=== PATIENT | male | born 1940 | race Caucasian/White ===

== ENCOUNTER 2017-04-06 08:51 | Outpatient (CLI) | payer MEDICARE ==
--- NOTE | 2017-04-06 10:03 | ULT ---
BILATERAL CAROTID DUPLEX ULTRASOUND INCLUDING COLOR AND SPECTRAL DOPPLER IMAGING: Date: 04/06/17 HISTORY: [id number] male with follow-up stenoses. FINDINGS/IMPRESSION: PSV Right ICA: 318 cm/sec EDV: 55 cm/sec ICA/CCA Ratio: 3.4 PSV Left ICA: 66 cm/sec EDV: 19 cm/sec ICA/CCA Ratio: 0.8 Markedly abnormally high velocities in both ECAs. Severe greater than 70% stenosis right ICA. No hemodynamically significant stenosis demonstrated on t he left side. Postop changes involving the left carotid artery with what appears to be a persistent e ndostent in place. POS: [facility]
== END 2017-04-06 08:52 | disposition home or self-care (01) ==
LOC: ULT 08:51
PROVIDERS: ATTEND Thoracic Surgery (Cardiothoracic Vascular Surgery)
DX: I65.8 Occlusion and stenosis of other precerebral arteries (principal); I65.21 Occlusion and stenosis of right carotid artery
CPT/HCPCS: 93880

== ENCOUNTER 2017-05-23 08:30 | Inpatient (IN) | payer MEDICARE ==
--- NOTE | 2017-05-23 08:34 | HP ---
HISTORY OF PRESENT ILLNESS: This is a 77-year-old gentleman who about 1 year ago had an episode of b lurred vision and lightheadedness while riding in his car. This eventually led to carotid ultrasonog bhavana and findings of bilateral carotid disease. The left carotid stenosis was deemed to be the wors t and he underwent surgical endarterectomy in August of last year on the left carotid. He had been fol lowed up six months later with a repeat carotid ultrasound showing a good result from the left caroti d endarterectomy, but last of these were greater than 300 cm per second on the right consistent with findings of CTA demonstrating about 70% right carotid stenosis. He is now being admitted for this. PAST MEDICAL HISTORY: Significant for back and knee arthritis. He has a history of elevated lipid l evels. He has had a history of previous deep vein thrombosis with pulmonary embolism. SOCIAL HISTORY: He has not smoked in greater than 10 years. He does not exercise regularly. 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 ALLERGIES: Include LATEX, XARELTO, and ELIQUIS. CURRENT MEDICATIONS: Include Elavil 25 once a day, aspirin 81 once a day, atorvastatin 20 mg once a day, calcium carbonate 600 mg daily, iron supplements 325 mg b.i.d., Lasix 20 mg a day, Hytrin 10 mg once a day, tramadol as needed for pain, testosterone topical gel, and multivitamins. PAST SURGICAL HISTORY: Laminectomy on [address] Reyes, bilateral knee replacements last year by Dr. Gabriel, prior DVT and pulmonary embolism, right shoulder surgery, left carotid endartere ctomy, and reversed right shoulder surgery in 12/2016. PHYSICAL EXAMINATION: GENERAL: He is an alert, cooperative gentleman in no distress. Weight 220. Height 5 feet 11 inches . VITAL SIGNS: Blood pressure 140/80, heart rate 86. NECK: Right carotid bruit is present. He does have somewhat limited mobility of his neck motion. CARDIAC: Regular rate and rhythm, no murmurs. LUNGS: Clear to auscultation bilaterally. He has no clubbing, cyanosis or edema distally. ABDOMEN: Soft and obese, nontender. NEUROLOGIC: Nonfocal. PLAN: At this time is for right carotid endarterectomy and informed consent has been obtained.
[2017-05-24] MEDS ORDERED: CEFAZOLIN/Water 2 GM/20 ML SYRINGE ONE (06:21)
[2017-05-24] MEDS ORDERED: Fentanyl 100 MCG/2 ML VIAL ONE ×2 (06:38→09:57)
[2017-05-24] MEDS ORDERED: Protamine Sulfate 50 MG/5 ML VIAL ONE (06:39)
[2017-05-24] MEDS ORDERED: Heparin 5,000 UNITS/ML VIAL ONE (06:39)
[2017-05-24] MEDS ORDERED: Bupivacaine HCl 0.5%/Epinephrine 1:200,000/PF 30 ml Vial ONE (06:40)
--- NOTE | 2017-05-24 09:56 | OP ---
PREOPERATIVE DIAGNOSIS: Critical right carotid stenosis. POSTOPERATIVE DIAGNOSIS: Critical right carotid stenosis. PROCEDURE: Right carotid endarterectomy with bovine patch angioplasty. SURGEON: Abdulaziz Ramos M.D. ANESTHESIA: General. ESTIMATED BLOOD LOSS: Less than 100. PROCEDURE IN DETAIL: After adequate anesthesia had been obtained, the patient's neck was stiff and d id not rotate, which was a known problem prior to surgery. He had an ultrasound utilization to ident dwight the carotid bulb. He was then prepped and draped. Incision was made and carried through the michael tysma. Sternocleidomastoid muscle was rotated laterally. Facial and external jugular veins were lig ated and divided. Common internal and external carotid arteries were identified as well as the hypog lossal nerve. After heparinization and good ACT levels, clamps were applied, arteriotomy performed, and a 12-Japanese shunt placed, which fit snugly. Following this, endarterectomy was performed. There was nice tapering distally. After irrigating the area thoroughly with heparin saline and a bovine p atch was used to close the arteriotomy. Prior to completing the suture line, the shunt was removed, vessels back flushed and forward flushed. The suture line was secured and flow restored up the exter nal and then internal carotid artery. Following a partial heparin reversal with protamine, hemostasi s was obtained and the wound was irrigated and closed in layers.
[2017-05-24 11:16] VITALS: BMI 31.3
[2017-05-24] MEDS ORDERED: Sodium Chloride 0.9% 1,000 ML IV SCH (11:25)
[2017-05-24] MEDS ORDERED: hydrALAZINE 20 MG/ML VIAL SLOW IVP PRN (11:25)
[2017-05-24] MEDS ORDERED: DOPamine 400 MG/D5W 250 ML 250 ML IVPB PRN (11:25)
[2017-05-24] MEDS ORDERED: Fentanyl 100 MCG/2 ML VIAL SLOW IVP PRN ×2 (11:25)
[2017-05-24] MEDS ORDERED: Ondansetron HCl/PF 4 MG/2 ML Vial IVP PRN (11:25)
[2017-05-24] MEDS ORDERED: Phenylephrine 10 MG/NS 250 ML 250 ML IVPB PRN (11:25)
[2017-05-24] MEDS ORDERED: HYDROcodone/Acetaminophen 5/325 mg Tablet PO PRN ×2 (11:25)
[2017-05-24] MEDS ORDERED: Acetaminophen 325 MG TAB PO PRN (11:25)
[2017-05-24] MEDS ORDERED: traMADol HCl 50 MG TAB PO PRN (11:25)
[2017-05-24] MEDS ORDERED: Glycopyrrolate 0.2 MG/ML 5 ML SYRINGE ONE (15:41)
[2017-05-24] MEDS ORDERED: PHENYLEPHRINE-NS 100 MCG/ML 10 ML SYRINGE ONE (15:41)
[2017-05-24] MEDS ORDERED: Metoprolol Tartrate 5 MG/5 ML VIAL ONE (15:41)
[2017-05-24] MEDS ORDERED: Heparin 10,000 UNITS/ 10 ML VIAL ONE (15:41)
[2017-05-24] MEDS ORDERED: Ondansetron HCl/PF 4 MG/2 ML Vial ONE (15:41)
[2017-05-24] MEDS ORDERED: Dexamethasone 20 MG/5 ML VIAL ONE (15:41)
[2017-05-24] MEDS ORDERED: Propofol 200 MG/20 ML VIAL ONE (15:41)
[2017-05-24] MEDS ORDERED: Lidocaine 1% PF 5 ML VIAL ONE (15:41)
[2017-05-24] MEDS: CEFAZOLIN/Water 2 GM/20 ML SYRINGE SLOW IVP SCH ×2 (15:50→23:38)
[2017-05-24] MEDS ORDERED: Amitriptyline HCl 25 MG TAB PO SCH (21:00)
[2017-05-24] MEDS ORDERED: Atorvastatin Calcium 20 MG TAB PO SCH (21:00)
[2017-05-24] MEDS ORDERED: Terazosin HCl 5 MG CAP PO SCH (21:00)
[2017-05-25 04:24] VITALS: TEMP 98.6
[2017-05-25] MEDS: CEFAZOLIN/Water 2 GM/20 ML SYRINGE SLOW IVP SCH (06:13)
--- NOTE | 2017-05-25 06:48 | DIS ---
HOSPITAL COURSE: The patient was admitted for elective right carotid endarterectomy. His postoperat lida course was uneventful. His neurologic exam was baseline and he had only some mild perioperative bradycardia into the mid 40s. He will be discharged today to resume his home medications including a daily aspirin.
[2017-05-25] MEDS ORDERED: Furosemide 20 MG TAB PO SCH (09:00)
[2017-05-25] MEDS ORDERED: Polyethylene Glycol 3350 17 GM Packet PO SCH (21:00)
== END 2017-05-25 09:33 | disposition home or self-care (01) | DRG 39 ==
LOC: SURG A 05-24 05:39 → EDSTATUS 05-24 08:30 → CCU 05-24 09:04
PROVIDERS: ADMIT Thoracic Surgery (Cardiothoracic Vascular Surgery); ATTEND Thoracic Surgery (Cardiothoracic Vascular Surgery)
PROC: 03CH0ZZ Extirpation of Matter from Right Common Carotid Artery, Open Approach (ICD-10-PCS; principal; 2017-05-24)
PROC: 03UH0KZ Supplement Right Common Carotid Artery with Nonautologous Tissue Substitute, Open Approach (ICD-10-PCS; 2017-05-24)
DX: I65.21 Occlusion and stenosis of right carotid artery (principal); R00.1 Bradycardia, unspecified; M17.10 Unilateral primary osteoarthritis, unspecified knee; Z86.718 Personal history of other venous thrombosis and embolism; Z86.711 Personal history of pulmonary embolism; Z87.891 Personal history of nicotine dependence; Z88.8 Allergy status to other drugs, medicaments and biological substances; Z91.040 Latex allergy status; Z79.82 Long term (current) use of aspirin; Z96.653 Presence of artificial knee joint, bilateral; M54.5 Low back pain
CPT/HCPCS: 80048; 85027; 93005; 93010; J0360; J0670; J1100; J1642; J1644; J2001; J2405; J2704; J2720; J3010

== ENCOUNTER 2017-05-23 08:33 | Outpatient (CLI) | payer MEDICARE ==
[2017-05-23 10:12] LABS: Hemoglobin 13.7 g/dL (14.0-18.0); Mean Corpuscular HGB CONC 32.7 g/dL (32.0-36.0); Mean Corpuscular Hemoglobin 31.3 pg (27.0-31.0); Mean Corpuscular Volume 95.9 fl (80.0-94.0); Mean Platelet Volume 6.7 fL (7.4-10.4); Platelet Count 209 thou/uL (130-400); RBC Distribution Width 13.3 % (11.5-14.5); Red Blood Cell (RBC) Count 4.38 mill/uL (4.70-6.10); White Blood Cell (WBC) Count 7.9 thou/uL (4.8-10.8)
[2017-05-23 10:37] LABS: Anion Gap 9 mmol/L (10-20); BUN (Urea Nitrogen) 20 mg/dL (8.4-25.7); Calc. Creatinine Clearance 0 mL/min (70-130); Calcium 8.9 mg/dL (7.8-10.44); Carbon Dioxide 30 mmol/L (23-31); Chloride 102 mmol/L (98-107); Estimated GFR-MDRD 73; Glucose 130 mg/dL (83-110); Potassium 4.2 mmol/L (3.5-5.1); Sodium 137 mmol/L (136-145)
--- NOTE | 2017-05-23 17:09 | EKG ---
Test Reason : Blood Pressure : / mmHG Vent. Rate : 073 BPM Atrial Rate : 073 BPM P-R Int : 170 ms QRS Dur : 088 ms QT Int : 372 ms P-R-T Axes : 051 031 010 degrees QTc Int : 409 ms Normal sinus rhythm Possible Inferior infarct , age undetermined Abnormal ECG When compared with ECG of 09-SEP-2016 09:49, Borderline criteria for Inferior infarct are now Present Inverted T waves have replaced nonspecific T wave abnormality in Inferior leads Confirmed by DR. Tenisha WINSLOW ([id number]) on 05/23/2017 5:08:37 PM Referred By: LATOYA Confirmed By:DR. Tenisha WINSLOW
== END 2017-05-23 08:34 | disposition home or self-care (01) ==
LOC: LABBT 08:33
PROVIDERS: ATTEND Thoracic Surgery (Cardiothoracic Vascular Surgery)
DX: Z01.818 Encounter for other preprocedural examination (principal); I65.21 Occlusion and stenosis of right carotid artery
CPT/HCPCS: 80048; 85027; 93005; 93010

== ENCOUNTER 2017-06-30 08:09 | Outpatient (CLI) | payer MEDICARE ==
--- NOTE | 2017-06-30 10:26 | ULT ---
ULTRASOUND ABDOMINAL AORTA: Date: 06/30/17 HISTORY: Screening for abdominal aortic aneurysm. Patient is a smoker. FINDINGS: The abdominal aorta measures 2.0 cm in the maximum AP dimension. IMPRESSION: No evidence of abdominal aortic aneurysm. POS: [facility]
== END 2017-06-30 08:10 | disposition home or self-care (01) ==
LOC: ULT 08:09
PROVIDERS: ATTEND Internal Medicine
DX: Z87.891 Personal history of nicotine dependence (principal)
CPT/HCPCS: 76775

== ENCOUNTER 2017-09-05 14:13 | Outpatient (CLI) | payer MEDICARE | END 2017-09-05 14:14 | disposition home or self-care (01) | LOC: BICMRI 14:13 | PROVIDERS: ATTEND Specialist | DX: M96.1 Postlaminectomy syndrome, not elsewhere classified (principal); M47.896 Other spondylosis, lumbar region; Z98.890 Other specified postprocedural states | CPT/HCPCS: 72100; 72148 ==

== ENCOUNTER 2019-01-17 06:11 | Day surgery (SDC) | payer MEDICARE ==
[2019-01-16 12:44] VITALS: BMI 27.1
[2019-01-17] MEDS ORDERED: Lidocaine 1% (PF) 30 ML VIAL ONE (06:30)
[2019-01-17 06:58] LABS: ALT (SGPT) 9 U/L (8-55); AST (SGOT) 19 U/L (5-34); Alkaline Phosphatase 90 U/L (40-110); Anion Gap 11 mmol/L (10-20); BUN (Urea Nitrogen) 4 mg/dL (8.4-25.7); Bilirubin, Total 0.5 mg/dL (0.2-1.2); Calc. Creatinine Clearance 65 mL/min (70-130); Calcium 9.2 mg/dL (7.8-10.44); Carbon Dioxide 26 mmol/L (23-31); Chloride 104 mmol/L (98-107); Estimated GFR-MDRD 60; Globulin 3.2 g/dL (2.4-3.5); Glucose 119 mg/dL (83-110); Potassium 4.3 mmol/L (3.5-5.1); Protein, Total 7.2 g/dL (5.8-8.1); Sodium 137 mmol/L (136-145)
[2019-01-17] MEDS ORDERED: hydrALAZINE 20 MG/ML VIAL ONE (07:37)
[2019-01-17] MEDS ORDERED: Nitroglycerin 4.9 GM Bottle ONE (08:09)
[2019-01-17] MEDS ORDERED: diphenhydrAMINE 50 MG/ML VIAL ONE (09:18)
== END 2019-01-17 13:40 | disposition home or self-care (01) ==
LOC: CCL 06:11
PROVIDERS: ATTEND Internal Medicine Cardiovascular Disease
PROC: 4A023N7 Measurement of Cardiac Sampling and Pressure, Left Heart, Percutaneous Approach (ICD-10-PCS; principal; 2019-01-17)
PROC: B2111ZZ Fluoroscopy of Multiple Coronary Arteries using Low Osmolar Contrast (ICD-10-PCS; 2019-01-17)
DX: I25.10 Atherosclerotic heart disease of native coronary artery without angina pectoris (principal); I35.0 Nonrheumatic aortic (valve) stenosis; E78.2 Mixed hyperlipidemia; I10 Essential (primary) hypertension; E11.9 Type 2 diabetes mellitus without complications; M81.0 Age-related osteoporosis without current pathological fracture; K21.9 Gastro-esophageal reflux disease without esophagitis; J45.909 Unspecified asthma, uncomplicated; Z87.891 Personal history of nicotine dependence; Z79.82 Long term (current) use of aspirin; Z79.84 Long term (current) use of oral hypoglycemic drugs; Z79.899 Other long term (current) drug therapy; Z88.8 Allergy status to other drugs, medicaments and biological substances; Z91.040 Latex allergy status
CPT/HCPCS: 80053; C1769; J0360; J1200; J1644; J2001

== ENCOUNTER 2019-01-24 10:11 | Outpatient (CLI) | payer MEDICARE ==
--- NOTE | 2019-01-24 17:08 | EKG ---
Test Reason : Blood Pressure : / mmHG Vent. Rate : 109 BPM Atrial Rate : 109 BPM P-R Int : 156 ms QRS Dur : 084 ms QT Int : 330 ms P-R-T Axes : 000 067 031 degrees QTc Int : 444 ms Sinus tachycardia Otherwise normal ECG Confirmed by DUY SMITH ([id number]) on 01/24/2019 5:08:13 PM Referred By: IRAJ Confirmed By:DUY SMITH
== END 2019-01-24 10:12 | disposition home or self-care (01) ==
LOC: LABBT 10:11
PROVIDERS: ATTEND Thoracic Surgery (Cardiothoracic Vascular Surgery)
DX: Z01.810 Encounter for preprocedural cardiovascular examination (principal); I25.10 Atherosclerotic heart disease of native coronary artery without angina pectoris; I35.1 Nonrheumatic aortic (valve) insufficiency
CPT/HCPCS: 93005; 93010

== ENCOUNTER 2019-01-24 12:00 | Inpatient (IN) | payer MEDICARE ==
[2019-01-24 12:36] VITALS: BMI 27.0
[2019-01-24 14:24] LABS: Hemoglobin 12.6 g/dL (14.0-18.0); Mean Corpuscular HGB CONC 34.5 g/dL (32.0-36.0); Mean Corpuscular Hemoglobin 32.9 pg (27.0-31.0); Mean Corpuscular Volume 95.4 fL (78.0-98.0); Mean Platelet Volume 7.5 fL (7.4-10.4); Platelet Count 218 thou/uL (130-400); RBC Distribution Width 11.5 % (11.5-14.5); Red Blood Cell (RBC) Count 3.83 mill/uL (4.70-6.10); White Blood Cell (WBC) Count 8.1 thou/uL (4.8-10.8)
[2019-01-24 14:41] LABS: Anion Gap 11 mmol/L (10-20); BUN (Urea Nitrogen) 21 mg/dL (8.4-25.7); Calc. Creatinine Clearance 0 mL/min (70-130); Calcium 9.4 mg/dL (7.8-10.44); Carbon Dioxide 28 mmol/L (23-31); Chloride 104 mmol/L (98-107); Estimated GFR-MDRD 66; Glucose 92 mg/dL (83-110); Potassium 3.9 mmol/L (3.5-5.1); Sodium 139 mmol/L (136-145)
[2019-01-25] MEDS ORDERED: Albumin 5% 500 ML ONE ×2 (06:07→06:37)
[2019-01-25] MEDS ORDERED: Vancomycin HCl 1.5 GM in Sodium Chloride 0.9% 250 ML 300 ML IVPB SCH (06:30)
[2019-01-25] MEDS ORDERED: Fentanyl 100 MCG/2 ML VIAL ONE (06:31)
[2019-01-25] MEDS ORDERED: Midazolam HCl 2 mg/2 ml Vial ONE (06:31)
[2019-01-25] MEDS ORDERED: Vecuronium 10 MG VIAL ONE ×2 (06:32→11:19)
[2019-01-25] MEDS ORDERED: Dexmedetomidine 200 MCG/2 ML VIAL ONE (06:32)
[2019-01-25] MEDS ORDERED: Midazolam HCl 5 mg/5 ml Vial ONE (06:32)
[2019-01-25] MEDS ORDERED: Heparin 10,000 UNITS/1 ML VIAL 30,000 UNITS in Sodium Chloride 0.9% 1,000 ML FS SCH (07:15)
[2019-01-25] MEDS ORDERED: Insulin Regular 300 UNITS/3 ML VIAL ONE (09:40)
[2019-01-25] MEDS ORDERED: Sodium Bicarb 50 MEQ/50 ML VIAL ONE (11:19)
[2019-01-25] MEDS ORDERED: Mannitol 12.5 GM/50 ML ONE (11:19)
[2019-01-25] MEDS ORDERED: Atropine Sulfate 0.4 mg/1 ml Vial ONE (11:19)
[2019-01-25] MEDS ORDERED: Nitroglycerin 50 MG/250 ML BOT ONE (11:19)
[2019-01-25] MEDS ORDERED: Cardioplegic Soln 1,000 ML BAG ONE (11:19)
[2019-01-25] MEDS ORDERED: Aminocaproic Acid 5 GM/20 ML VIAL ONE (11:19)
[2019-01-25] MEDS ORDERED: Ketorolac Tromethamine 30 MG/ML VIAL ONE (11:19)
[2019-01-25] MEDS ORDERED: Papaverine 60 MG/2 ML VIAL ONE (11:19)
[2019-01-25] MEDS ORDERED: Glycopyrrolate 0.2 MG/ML 5 ML SYRINGE ONE (11:19)
[2019-01-25] MEDS ORDERED: Protamine Sulfate 250 MG/25 ML VIAL ONE (11:19)
[2019-01-25] MEDS ORDERED: Lidocaine 2% PF 5 ML VIAL ONE (11:19)
[2019-01-25] MEDS ORDERED: Esmolol 100 MG/10 ML VIAL ONE (11:19)
[2019-01-25] MEDS ORDERED: Heparin 5,000 UNITS/ML VIAL ONE (11:19)
[2019-01-25] MEDS ORDERED: ePHEDrine/0.9% NaCl/PF SYRINGE 50 mg/10 ml ONE (11:19)
[2019-01-25] MEDS ORDERED: Potassium Chloride 60 MEQ/30 ML VIAL ONE (11:19)
[2019-01-25] MEDS ORDERED: Ondansetron PF 4 MG/2 ML Vial ONE (11:19)
[2019-01-25] MEDS ORDERED: Magnesium 5 GM/10 ML VIAL ONE (11:19)
[2019-01-25] MEDS ORDERED: Heparin 30,000 units/30 ml VIAL ONE (11:19)
[2019-01-25] MEDS ORDERED: PHENYLEPHRINE-NS 100 MCG/ML 10 ML SYRINGE ONE (11:19)
[2019-01-25] MEDS ORDERED: Norepinephrine 4 MG/4 ML VIAL ONE (11:19)
[2019-01-25] MEDS ORDERED: Thrombin 5000 UNITS/5 ML VIAL ONE (11:19)
[2019-01-25] MEDS ORDERED: Calcium Chloride 1 GM/10 ML Abboject SYRINGE ONE (11:19)
[2019-01-25] MEDS ORDERED: Mag-Al 1200 mg/1200 mg/30 ML UDCUP PO PRN (12:20)
[2019-01-25] MEDS ORDERED: Nitroglycerin 50 MG/250 ML BOT 250 ML IVPB PRN (12:20)
[2019-01-25] MEDS ORDERED: Hetastarch 6% 500 ML 500 ML IVPB PRN (12:20)
[2019-01-25] MEDS ORDERED: Fentanyl 100 MCG/2 ML VIAL SLOW IVP PRN (12:20)
[2019-01-25] MEDS ORDERED: Post-Op Insulin Drip Protocol IVPB ONE (12:20)
[2019-01-25] MEDS ORDERED: DOPamine 400 MG/D5W 250 ML 250 ML IVPB PRN (12:20)
[2019-01-25] MEDS ORDERED: Norepinephrine 8 MG/0.9% NS 250 ML IVPB PRN (12:20)
[2019-01-25] MEDS ORDERED: Bisacodyl 5 MG TAB PO PRN (12:20)
[2019-01-25] MEDS ORDERED: Acetaminophen 325 MG TAB PO PRN (12:20)
[2019-01-25] MEDS ORDERED: Morphine 2 MG/ML SYRINGE SLOW IVP PRN (12:20)
[2019-01-25] MEDS ORDERED: HYDROcodone/Acetaminophen 5/325 mg Tablet PO PRN (12:20)
[2019-01-25] MEDS ORDERED: Guaifenesin DM 100-10/5 ML UDCUP PO PRN (12:20)
[2019-01-25] MEDS ORDERED: Bisacodyl 10 MG SUPP PR PRN (12:20)
[2019-01-25] MEDS ORDERED: niCARdipine 25 MG in Sodium Chloride 0.9% 250 ML 240 ML IVPB PRN (12:20)
[2019-01-25] MEDS ORDERED: Ondansetron PF 4 MG/2 ML Vial IVP PRN (12:20)
[2019-01-25] MEDS ORDERED: hydrALAZINE 20 MG/ML VIAL SLOW IVP PRN (12:20)
[2019-01-25] MEDS ORDERED: Promethazine HCl 25 MG/ML VIAL IM PRN (12:20)
[2019-01-25] MEDS ORDERED: HUMULIN R 100 UNITS in Sodium Chloride 0.9% 100 ML IVPB SCH (12:30)
[2019-01-25] MEDS ORDERED: Insulin Regular 300 UNITS/3 ML VIAL SC PRN (12:30)
[2019-01-25] MEDS ORDERED: Magnesium 2 GM/50 ML 2 GM in Premix Bag 1 BAG IVPB SCH (12:30)
[2019-01-25] MEDS ORDERED: Dextrose 5% in Water 1,000 ML IV PRN (12:30)
[2019-01-25] MEDS ORDERED: Dextrose 50% Abboject 50 ML SYRINGE SLOW IVP PRN (12:30)
[2019-01-25 12:57] LABS: #Eosinphils 0.1 thou/uL (0.0-0.7); #Lymphocytes 0.9 thou/uL (1.20-3.40); #Monocytes 0.9 thou/uL (0.11-0.59); #Neutrophils 12.9 thou/uL (1.40-6.50); %Basophils 0.1 % (0.0-1.0); %Eosinophils 0.4 % (0.0-10.0); %Lymphocytes 6.3 % (21.0-51.0); %Monocytes 6.2 % (0.0-10.0); Hemoglobin 10.3 g/dL (14.0-18.0); Mean Corpuscular HGB CONC 34.9 g/dL (32.0-36.0); Mean Corpuscular Hemoglobin 33.2 pg (27.0-31.0); Platelet Count 141 thou/uL (130-400); RBC Distribution Width 11.4 % (11.5-14.5); White Blood Cell (WBC) Count 14.9 thou/uL (4.8-10.8)
[2019-01-25 13:02] LABS: INR-International Normal Ratio 1.7; PTT 34.6 SEC (22.9-36.1)
[2019-01-25] MEDS: Fentanyl 100 MCG/2 ML VIAL SLOW IVP PRN ×2 (13:13→15:24)
[2019-01-25 13:33] LABS: Anion Gap 11 mmol/L (10-20); BUN (Urea Nitrogen) 18 mg/dL (8.4-25.7); Calc. Creatinine Clearance 77 mL/min (70-130); Calcium 7.8 mg/dL (7.8-10.44); Carbon Dioxide 25 mmol/L (23-31); Chloride 108 mmol/L (98-107); Estimated GFR-MDRD 70; Glucose 106 mg/dL (83-110); Sodium 140 mmol/L (136-145)
--- NOTE | 2019-01-25 14:02 | RAD ---
CHEST ONE VIEW: HISTORY: Heart surgery. COMPARISON: 06/23/2016 FINDINGS: The cardiac silhouette is magnified and enlarged. The pulmonary vasculature are at the upper limits o f normal and accentuated by shallow inspiration. The mediastinum is midline with sternotomy wires and other postoperative changes. Left thoracostomy tube extends to the superolateral aspect of the left hemithorax. No significant pneumothorax on this portable semiupright exam. Mediastinal drain in place . The tip of a right subclavian central venous catheter overlies the right atrium. IMPRESSION: Expected postoperative changes of the mediastinum with lines and tubes as detailed above. POS: [facility]
[2019-01-25] MEDS: Ibuprofen 800 MG TAB PO SCH ×2 (15:24→21:08)
[2019-01-25] MEDS: CEFAZOLIN 2 GM in Premix Bag 1 BAG IVPB SCH ×2 (15:24→22:09)
[2019-01-25 15:26] LABS: Actual Bicarbonate (HCO3a) 26.5 mEq/L (22-28); Analyzer IN Cardio OR; Base Excess (BEa) 0.6 mEq/L (-2.0 to +3.0); CO2 Tension 47.6 mmHg (35.0-45.0); Calcium, Ionized 1.11 mmol/L (1.12-1.30); Carboxyhemoglobin (COHb) 0.2 gm% (0.0-3.0); Hemoglobin (Hb) 11.7 g/dL (14.0-18.0); O2 Tension (PaO2) 456.5 mmHg (> 70.0); Potassium - ABG Lab 4.15 mmol/L (3.70-5.30); pH, Arterial 7.36 (7.35-7.45)
[2019-01-25 15:26] LABS: Actual Bicarbonate (HCO3a) 26.5 mEq/L (22-28); Analyzer IN Cardio OR; Base Excess (BEa) 1.5 mEq/L (-2.0 to +3.0); Calcium, Ionized 1.12 mmol/L (1.12-1.30); Carboxyhemoglobin (COHb) 0.7 gm% (0.0-3.0); O2 Tension (PaO2) 461.4 mmHg (> 70.0); Potassium - ABG Lab 4.05 mmol/L (3.70-5.30); pH, Arterial 7.41 (7.35-7.45)
[2019-01-25 15:27] LABS: Actual Bicarbonate (HCO3a) 23.9 mEq/L (22-28); Analyzer IN Cardio OR; Base Excess (BEa) -2.3 mEq/L (-2.0 to +3.0); CO2 Tension 47.8 mmHg (35.0-45.0); Calcium, Ionized 1.07 mmol/L (1.12-1.30); Carboxyhemoglobin (COHb) 0.3 gm% (0.0-3.0); Hemoglobin (Hb) 9.7 g/dL (14.0-18.0); O2 Tension (PaO2) 343.2 mmHg (> 70.0); Potassium - ABG Lab 4.81 mmol/L (3.70-5.30); pH, Arterial 7.32 (7.35-7.45)
[2019-01-25 15:27] LABS: Actual Bicarbonate (HCO3a) 25.8 mEq/L (22-28); Analyzer IN Cardio OR; Base Excess (BEa) -0.4 mEq/L (-2.0 to +3.0); Calcium, Ionized 1.03 mmol/L (1.12-1.30); Carboxyhemoglobin (COHb) 0.1 gm% (0.0-3.0); Hemoglobin (Hb) 9.3 g/dL (14.0-18.0); O2 Tension (PaO2) 431.2 mmHg (> 70.0); Potassium - ABG Lab 5.13 mmol/L (3.70-5.30); pH, Arterial 7.33 (7.35-7.45)
[2019-01-25 15:27] LABS: Actual Bicarbonate (HCO3v) 25 mEq/L (22-28); Analyzer IN Cardio OR; Base Excess -1.1 mEq/L (-2.0 to +3.0); Chloride (ABG LAB) 100 mmol/L (98-106); Hemoglobin (Hb) 9.1 g/dL (12.6-17.4); Potassium - ABG Lab 5.03 mmol/L (3.70-5.30); Sodium 129.2 mmol/L (133-146); pH (venous) 7.31 (7.32-7.43)
[2019-01-25] MEDS: Potassium Chloride 20 MEQ/100 ML PREMIX BAG IVPB PRN (15:27)
[2019-01-25 15:28] LABS: Actual Bicarbonate (HCO3a) 22.7 mEq/L (22-28); Analyzer IN Cardio OR; Base Excess (BEa) -2.1 mEq/L (-2.0 to +3.0); CO2 Tension 38.8 mmHg (35.0-45.0); Calcium, Ionized 1.13 mmol/L (1.12-1.30); Carboxyhemoglobin (COHb) 0.3 gm% (0.0-3.0); Hemoglobin (Hb) 10.4 g/dL (14.0-18.0); Potassium - ABG Lab 3.85 mmol/L (3.70-5.30); pH, Arterial 7.39 (7.35-7.45)
[2019-01-25 15:28] LABS: Puncture Site ALINE
[2019-01-25 15:28] LABS: Actual Bicarbonate (HCO3a) 27.6 mEq/L (22-28); Analyzer IN Cardio OR; CO2 Tension 54.6 mmHg (35.0-45.0); Calcium, Ionized 1.06 mmol/L (1.12-1.30); Hemoglobin (Hb) 9.6 g/dL (14.0-18.0); O2 Tension (PaO2) 389.8 mmHg (> 70.0); Potassium - ABG Lab 4.52 mmol/L (3.70-5.30); pH, Arterial 7.32 (7.35-7.45)
[2019-01-25 15:29] LABS: Puncture Site ALINE
[2019-01-25 15:29] LABS: Puncture Site ALINE
[2019-01-25 15:30] LABS: Puncture Site ALINE
[2019-01-25 15:30] LABS: Puncture Site ALINE
[2019-01-25 15:31] LABS: O2 Tension (PaO2) 580.6 mmHg (> 70.0); Puncture Site ALINE
[2019-01-25] MEDS: Lactated Ringer's 1,000 ML IV SCH (15:47)
--- NOTE | 2019-01-25 16:54 | EKG ---
Test Reason : POST CABG Blood Pressure : / mmHG Vent. Rate : 065 BPM Atrial Rate : 065 BPM P-R Int : 184 ms QRS Dur : 088 ms QT Int : 452 ms P-R-T Axes : 065 043 068 degrees QTc Int : 470 ms Normal sinus rhythm Normal ECG Confirmed by DUY SMITH ([id number]) on 01/25/2019 4:53:39 PM Referred By: LATOYA Confirmed By:DUY SMITH
[2019-01-25 18:14] LABS: Hemoglobin 10.3 g/dL (14.0-18.0)
[2019-01-25] MEDS: Vancomycin HCl 1 GM in Premix Bag 1 BAG IVPB SCH (18:30)
[2019-01-25 18:33] LABS: Potassium 4.6 mmol/L (3.5-5.1)
[2019-01-25] MEDS: Simvastatin 20 MG TAB PO SCH (20:15)
[2019-01-25] MEDS: HYDROcodone/Acetaminophen 5/325 mg Tablet PO PRN (20:15)
[2019-01-25] MEDS: Famotidine/PF 20 mg/2ml Vial SLOW IVP SCH (20:15)
[2019-01-26 04:51] LABS: #Lymphocytes 0.8 thou/uL (1.20-3.40); #Monocytes 1.2 thou/uL (0.11-0.59); %Basophils 0.2 % (0.0-1.0); %Eosinophils 0.2 % (0.0-10.0); %Lymphocytes 7.3 % (21.0-51.0); %Monocytes 10.6 % (0.0-10.0); %Neutrophils 81.8 % (42.0-75.0); Hemoglobin 10.1 g/dL (14.0-18.0); Mean Corpuscular HGB CONC 34.7 g/dL (32.0-36.0); Mean Corpuscular Hemoglobin 33.5 pg (27.0-31.0); Mean Corpuscular Volume 96.3 fL (78.0-98.0); Mean Platelet Volume 7.4 fL (7.4-10.4); Platelet Count 147 thou/uL (130-400); RBC Distribution Width 11.6 % (11.5-14.5); Red Blood Cell (RBC) Count 3.01 mill/uL (4.70-6.10)
[2019-01-26] MEDS: Ibuprofen 800 MG TAB PO SCH ×3 (04:51→20:16)
[2019-01-26 05:08] LABS: Anion Gap 8 mmol/L (10-20); BUN (Urea Nitrogen) 19 mg/dL (8.4-25.7); Calc. Creatinine Clearance 76 mL/min (70-130); Calcium 7.8 mg/dL (7.8-10.44); Carbon Dioxide 27 mmol/L (23-31); Chloride 106 mmol/L (98-107); Estimated GFR-MDRD 69; Glucose 124 mg/dL (83-110); Potassium 4.1 mmol/L (3.5-5.1); Sodium 137 mmol/L (136-145)
[2019-01-26] MEDS: Vancomycin HCl 1 GM in Premix Bag 1 BAG IVPB SCH (06:02)
[2019-01-26] MEDS: Lactated Ringer's 1,000 ML IV SCH (06:54)
--- NOTE | 2019-01-26 08:19 | OP ---
DATE OF PROCEDURE: 01/25/2019 PREOPERATIVE DIAGNOSES: 1. Coronary artery disease. 2. Aortic valve stenosis. POSTOPERATIVE DIAGNOSES: 1. Coronary artery disease. 2. Aortic valve stenosis. PROCEDURES PERFORMED: 1. Aortic valve replacement with a #25 INSPIRIS bioprosthetic valve. 2. Coronary artery bypass graft x4; left internal mammary artery as a sequential graft to the diagonal and LAD with the LAD being a very small target and the diagonal being at least 1.5 mm, large saphenous vein to a 1.5 to 2 mm obtuse marginal, and a large saphenous vein to 2 to 3 mm right coronary artery past the acute margin of the heart. CIS COORDINATOR: Dr. Coy. TRANSFUSION: None. DESCRIPTION OF PROCEDURE: After adequate anesthesia had been obtained, endovascular vein harvest of the left greater saphenous vein was performed while I performed a median sternotomy. The left internal mammary artery was harvested, entering the left pleura apically in a small area. After heparinization, the mammary was passed posterior to the thymus gland. Aorta and right atrium were cannulated and cardiopulmonary bypass was begun. The aorta was crossclamped, and after a liter of cold blood cardioplegia, the 4 distal anastomoses were completed. Following this, 300 mL of cardioplegia was given. A right superior pulmonary vein sump was placed and CO2 was insufflated in the pericardium and the aorta was then opened. Aortic trileaflet valve removed and the calcium debrided from the annulus. A 25 valve was chosen, following which 2-0 Ethibond mattress sutures were placed circumferentially, with felt deep to the anulus. The valve was then seated and suture secured. The aorta was closed with a double-layer 5-0 Prolene suture. Following this, the crossclamp was removed, the partial occluding clamp placed, and 2 proximal anastomoses performed on the aortic root and marked with rings. The patient was then weaned from cardiopulmonary bypass. Cannula was removed and the aortic cannulation site secured with a 4-0 Prolene suture. Mediastinal and left pleural drains were placed, following which the sternum was reapproximated with #7 interrupted wire using vancomycin paste on the sternal edges, platelet-rich blood, and platelet-poor plasma. Job ID: [id number]
[2019-01-26] MEDS: Aspirin 325 MG TAB PO SCH (08:26)
[2019-01-26] MEDS: HYDROcodone/Acetaminophen 5/325 mg Tablet PO PRN ×4 (08:26→20:17)
[2019-01-26] MEDS: CEFAZOLIN 2 GM in Premix Bag 1 BAG IVPB SCH (08:27)
[2019-01-26] MEDS: Enoxaparin Sodium 40 MG/0.4 ML SYRINGE SC SCH (08:27)
[2019-01-26] MEDS: Famotidine/PF 20 mg/2ml Vial SLOW IVP SCH ×2 (08:27→20:14)
[2019-01-26] MEDS: Polyethylene Glycol 3350 17 GM Packet PO SCH (08:27)
[2019-01-26] MEDS ORDERED: Dextrose 50% Abboject 50 ML SYRINGE SLOW IVP PRN (08:31)
[2019-01-26] MEDS ORDERED: Dextrose 5% in Water 1,000 ML IV PRN (08:31)
--- NOTE | 2019-01-26 09:04 | RAD ---
XR Chest 1 View Portable History: Open-heart surgery Comparison: Radiograph prior day Findings: Moderate left layering pleural effusion. Small right effusion. Mediastinal drains are similar. No significant pneumothorax. Right subclavian central venous catheter is similar. Similar appearance right reverse total shoulder arthroplasty. Impression: Uncomplicated expected postoperative findings.
--- NOTE | 2019-01-26 15:04 | PRG ---
DATE OF SERVICE: 01/26/2019 SUBJECTIVE: Mr. Veras currently doing well. He recently underwent bypass surgery and aortic valve replacement. No current complaints. He is currently on IV nitroglycerine in his IV fluids. He has a chest tube in place. No pressors noted. Recent chest x-ray showed uncomplicated postoperative findings. OBJECTIVE: VITAL SIGNS: Blood pressure 112/68, pulse 108, temperature afebrile. LUNGS: Clear to auscultation. HEART: Regular rate and rhythm. ABDOMEN: Soft, nontender, nondistended. EXTREMITIES: No edema. PERTINENT LABORATORY DATA: Hemoglobin 10.1, creatinine 1.04. IMPRESSION: 1. Coronary artery disease. 2. Status post bypass surgery. 3. Status post aortic valve replacement. RECOMMENDATIONS: 1. Routine postop care. 2. Chest tube recommendations per Dr. Abdulaziz Ramos. 3. Add statin therapy in addition to aspirin. 4. Add beta-braulio therapy when hemodynamically stable. Job ID: [id number]
[2019-01-26] MEDS: Insulin Regular 300 UNITS/3 ML VIAL SC PRN (16:38)
[2019-01-26] MEDS: Simvastatin 20 MG TAB PO SCH (20:14)
[2019-01-26] MEDS: Terazosin HCl 5 MG CAP PO SCH (20:15)
[2019-01-26] MEDS: Diltiazem HCl 125 MG, Admixture Fee 1 EACH in Sodium Chloride 0.9% 100 ML IVPB SCH (22:27)
[2019-01-27] MEDS: HYDROcodone/Acetaminophen 5/325 mg Tablet PO PRN ×3 (04:40→16:21)
[2019-01-27 04:50] LABS: #Eosinphils 0.1 thou/uL (0.0-0.7); #Monocytes 1.3 thou/uL (0.11-0.59); #Neutrophils 9.5 thou/uL (1.40-6.50); %Basophils 0.1 % (0.0-1.0); %Eosinophils 1.1 % (0.0-10.0); %Lymphocytes 8.7 % (21.0-51.0); %Monocytes 10.8 % (0.0-10.0); %Neutrophils 79.3 % (42.0-75.0); Hemoglobin 9.7 g/dL (14.0-18.0); Mean Corpuscular HGB CONC 34.2 g/dL (32.0-36.0); Mean Corpuscular Hemoglobin 32.9 pg (27.0-31.0); Mean Corpuscular Volume 96.1 fL (78.0-98.0); Mean Platelet Volume 7.6 fL (7.4-10.4); Platelet Count 134 thou/uL (130-400); RBC Distribution Width 11.6 % (11.5-14.5); Red Blood Cell (RBC) Count 2.94 mill/uL (4.70-6.10)
[2019-01-27] MEDS: Ibuprofen 800 MG TAB PO SCH ×3 (05:02→20:13)
[2019-01-27 05:11] LABS: Anion Gap 11 mmol/L (10-20); BUN (Urea Nitrogen) 16 mg/dL (8.4-25.7); Calc. Creatinine Clearance 83 mL/min (70-130); Calcium 8.1 mg/dL (7.8-10.44); Carbon Dioxide 26 mmol/L (23-31); Chloride 104 mmol/L (98-107); Estimated GFR-MDRD 79; Glucose 126 mg/dL (83-110); Potassium 3.9 mmol/L (3.5-5.1); Sodium 137 mmol/L (136-145)
--- NOTE | 2019-01-27 07:44 | RAD ---
XR Chest 1 View Portable History: Open-heart surgery Comparison: Radiograph prior day Findings: Heart size continues to be enlarged. Left effusion is similar. Atelectatic changes are duane lar. Pleural and mediastinal drains are similar. No new airspace consolidation. Impression: Similar examination of the chest.
[2019-01-27] MEDS: Polyethylene Glycol 3350 17 GM Packet PO SCH (08:10)
[2019-01-27] MEDS: Aspirin 325 MG TAB PO SCH (08:10)
[2019-01-27] MEDS: Famotidine/PF 20 mg/2ml Vial SLOW IVP SCH ×2 (08:12→20:12)
[2019-01-27] MEDS: Enoxaparin Sodium 40 MG/0.4 ML SYRINGE SC SCH (08:12)
[2019-01-27] MEDS: Diltiazem HCl 125 MG, Admixture Fee 1 EACH in Sodium Chloride 0.9% 100 ML IVPB SCH (08:44)
[2019-01-27] MEDS: Potassium Chloride 20 MEQ/100 ML PREMIX BAG IVPB PRN (09:47)
[2019-01-27] MEDS ORDERED: Diltiazem HCl 125 MG, Admixture Fee 1 EACH in Sodium Chloride 0.9% 100 ML IVPB SCH (09:49)
[2019-01-27] MEDS ORDERED: Amiodarone 150 MG in Dextrose 5% in Water 100 ML IVPB SCH (11:30)
[2019-01-27] MEDS: Insulin Regular 300 UNITS/3 ML VIAL SC PRN ×2 (11:31→20:24)
[2019-01-27] MEDS: Amiodarone 450 MG in Dextrose 5% in Water 250 ML IVPB SCH ×2 (11:37→20:14)
[2019-01-27] MEDS: Simvastatin 20 MG TAB PO SCH (20:13)
[2019-01-27] MEDS: Terazosin HCl 5 MG CAP PO SCH (20:13)
[2019-01-27] MEDS ORDERED: Metoprolol Tartrate 25 MG TAB PO SCH (21:00)
[2019-01-28] MEDS: HYDROcodone/Acetaminophen 5/325 mg Tablet PO PRN (01:40)
[2019-01-28 05:01] LABS: #Eosinphils 0.2 thou/uL (0.0-0.7); #Lymphocytes 1.1 thou/uL (1.20-3.40); #Monocytes 1.1 thou/uL (0.11-0.59); #Neutrophils 8.8 thou/uL (1.40-6.50); %Basophils 0.1 % (0.0-1.0); %Eosinophils 1.8 % (0.0-10.0); %Monocytes 9.6 % (0.0-10.0); %Neutrophils 78.5 % (42.0-75.0); Hemoglobin 8.8 g/dL (14.0-18.0); Mean Corpuscular HGB CONC 33.9 g/dL (32.0-36.0); Mean Corpuscular Hemoglobin 32.5 pg (27.0-31.0); Mean Corpuscular Volume 95.9 fL (78.0-98.0); Mean Platelet Volume 7.2 fL (7.4-10.4); Platelet Count 140 thou/uL (130-400); RBC Distribution Width 11.5 % (11.5-14.5); Red Blood Cell (RBC) Count 2.71 mill/uL (4.70-6.10); White Blood Cell (WBC) Count 11.3 thou/uL (4.8-10.8)
[2019-01-28] MEDS: Ibuprofen 800 MG TAB PO SCH ×3 (05:04→20:29)
[2019-01-28 05:23] LABS: Anion Gap 10 mmol/L (10-20); BUN (Urea Nitrogen) 20 mg/dL (8.4-25.7); Calc. Creatinine Clearance 78 mL/min (70-130); Calcium 8.1 mg/dL (7.8-10.44); Carbon Dioxide 27 mmol/L (23-31); Chloride 104 mmol/L (98-107); Estimated GFR-MDRD 75; Glucose 136 mg/dL (83-110); Potassium 4.1 mmol/L (3.5-5.1); Sodium 137 mmol/L (136-145)
--- NOTE | 2019-01-28 07:58 | RAD ---
XR Chest 1 View Portable History: Open-heart surgery Comparison: Radiograph prior day Findings: Mild left lower lobe atelectatic changes. No pneumothorax. NaSal drains have been removed. Impression: Uncomplicated removal of mediastinal and pleural drains.
[2019-01-28] MEDS: Amiodarone 200 MG TAB PO SCH ×2 (08:26→20:28)
[2019-01-28] MEDS: Polyethylene Glycol 3350 17 GM Packet PO SCH (08:26)
[2019-01-28] MEDS: metFORMIN 500 MG TAB PO SCH (08:26)
[2019-01-28] MEDS: Enoxaparin Sodium 40 MG/0.4 ML SYRINGE SC SCH (08:26)
[2019-01-28] MEDS ORDERED: Ipratropium Bromide 0.03% Nasal Inhaler 30 ml Bottle EA NARE SCH (09:00)
[2019-01-28] MEDS: Ipratropium Bromide 0.03% Nasal Inhaler 30 ml Bottle EA NARE SCH ×2 (11:33→22:18)
[2019-01-28] MEDS: Simvastatin 20 MG TAB PO SCH (20:28)
[2019-01-28] MEDS: Terazosin HCl 5 MG CAP PO SCH (20:28)
[2019-01-29] MEDS: Ibuprofen 800 MG TAB PO SCH ×3 (06:13→21:26)
[2019-01-29] MEDS: Furosemide 40 MG TAB PO SCH (07:23)
[2019-01-29] MEDS: Potassium Chloride 10 MEQ TAB PO SCH (07:23)
[2019-01-29] MEDS: Amiodarone 200 MG TAB PO SCH ×2 (08:30→19:56)
[2019-01-29] MEDS: Loratadine 10 MG TAB PO SCH (08:30)
[2019-01-29] MEDS: metFORMIN 500 MG TAB PO SCH (08:30)
--- NOTE | 2019-01-29 09:10 | PRG ---
DATE OF SERVICE: 01/29/2019 SUBJECTIVE: Mr. Veras is doing well. He continues to wait for telemetry monitoring bed. He is currently in the ICU. No current complaints. He did have a brief episode of atrial fibrillation over the weekend. He is on p.o. amiodarone. He is not on beta-braulio therapy. OBJECTIVE: VITAL SIGNS: Blood pressure 155/73, pulse 83, and temperature afebrile. LUNGS: Clear to auscultation. HEART: Regular rate and rhythm. ABDOMEN: Soft, nontender, and nondistended. EXTREMITIES: No edema. LABORATORY DATA: Hemoglobin 8.8. Creatinine 0.97. IMPRESSION: 1. Coronary artery disease, status post bypass surgery. 2. Status post aortic valve replacement. 3. Postop atrial fibrillation. RECOMMENDATIONS: Mr. Veras did have a brief episode of atrial fibrillation. We will add low-dose Toprol. It would be okay to continue amiodarone therapy for one month and discontinue. Continue incentive spirometry and physical therapy. Job ID: [id number]
--- NOTE | 2019-01-29 11:24 | EKG ---
Test Reason : Blood Pressure : / mmHG Vent. Rate : 077 BPM Atrial Rate : 077 BPM P-R Int : 172 ms QRS Dur : 084 ms QT Int : 378 ms P-R-T Axes : 027 004 043 degrees QTc Int : 427 ms Normal sinus rhythm Nonspecific ST abnormality Abnormal ECG Confirmed by DUY SMITH ([id number]) on 01/29/2019 11:24:39 AM Referred By: LATOYA Confirmed By:DUY SMITH
--- NOTE | 2019-01-29 11:47 | EKG ---
Test Reason : STAT Blood Pressure : / mmHG Vent. Rate : 092 BPM Atrial Rate : 045 BPM P-R Int : 168 ms QRS Dur : 086 ms QT Int : 330 ms P-R-T Axes : 093 001 038 degrees QTc Int : 408 ms Sinus bradycardia with marked sinus arrhythmia Premature atrial complexes Otherwise normal ECG Confirmed by DUY SMITH ([id number]) on 01/29/2019 11:47:12 AM Referred By: Klaudia KLEIN Confirmed By:DUY SMITH
[2019-01-29] MEDS: Terazosin HCl 5 MG CAP PO SCH (19:56)
[2019-01-29] MEDS: Simvastatin 20 MG TAB PO SCH (19:56)
[2019-01-29] MEDS ORDERED: Polyethylene Glycol 3350 17 GM Packet PO SCH (21:00)
[2019-01-29] MEDS ORDERED: Enoxaparin Sodium 40 MG/0.4 ML SYRINGE SC SCH (21:00)
[2019-01-30 04:29] VITALS: TEMP 99
[2019-01-30] MEDS: Ibuprofen 800 MG TAB PO SCH (06:13)
[2019-01-30] MEDS: Furosemide 40 MG TAB PO SCH (07:51)
[2019-01-30] MEDS: Amiodarone 200 MG TAB PO SCH (07:51)
[2019-01-30] MEDS: metFORMIN 500 MG TAB PO SCH (07:52)
[2019-01-30] MEDS: Potassium Chloride 10 MEQ TAB PO SCH (07:52)
[2019-01-30] MEDS: Loratadine 10 MG TAB PO SCH (07:52)
--- NOTE | 2019-01-30 08:31 | DIS ---
DATE OF ADMISSION: 01/25/2019 DATE OF DISCHARGE: 01/30/2019 A gentleman admitted for a cardiac surgery, where he underwent replacement of his aortic valve with a #25 Inspiris valve and 4-vessel bypass grafting. His postoperative course was notable only for an episode of AFib with RVR that was initially treated with diltiazem and then switched to amiodarone with resolution. He had no recurrence and will be discharged home today to resume his home medications, except for his long-acting nitrates. He will have a prescription for metoprolol XL 25 daily and amiodarone 400 b.i.d. in a tapering dose. Discharge and followup instructions have been given. Job ID: [id number]
[2019-01-30 09:47] VITALS: BP 160/90
[2019-01-30] MEDS ORDERED: Amiodarone 200 MG TAB PO SCH (11:00)
--- NOTE | 2019-01-31 07:20 | PRG ---
DATE OF SERVICE: 01/30/2019 SUBJECTIVE: Mr. Veras is doing well. No current complaints. He remains in the ICU given no telemetry monitoring beds available. OBJECTIVE: VITAL SIGNS: Blood pressure 156/97, pulse 99, and temperature afebrile. LUNGS: Clear to auscultation. HEART: Regular rate and rhythm. ABDOMEN: Soft, nontender, and nondistended. EXTREMITIES: No edema. IMPRESSION: 1. Coronary artery disease. 2. Status post bypass surgery. 3. Status post aortic valve replacement. RECOMMENDATIONS: 1. Continue amiodarone at 400 mg p.o. q.a.m. with zero refills. 2. Continue metoprolol in addition to Zocor and aspirin. 3. I discussed with Mr. Veras the importance of antibiotic therapy prior to any procedure. He understood. Plan is to follow Mr. Veras in the next 2 to 3 weeks in the office. Job ID: [id number]
--- NOTE | 2019-02-01 00:54 | PQF ---
BONNIE FORBES JAMES M MD [id number] CLINICAL DOCUMENTATION CLARIFICATION FORM: POST DISCHARGE Addendum to original discharge summary date: ____ Late entry note date: __ DATE: 02/01/19 ATTN: Abdulaziz Vines Please exercise your independent, professional judgment in responding to the clarification form. Clinical indicators are provided on the bottom of this form for your review Please check appropriate box(s): [ ] Paroxysmal Atrial Fibrillation [ ] Persistent Atrial Fibrillation [ ] Chronic Atrial Fibrillation (includes permanent Atrial Fibrillation) [ ] Atrial fib/Atrial flutter [ ] Atrial Flutter [ y ] Post-Operative Complication - Atrial Fibrillation [ y ] Paroxysmal Atrial Fibrillation [ ] Persistent Atrial Fibrillation [ y ] Other diagnosis __all this information is readily available in the records so why do you ask me [ ] Unable to determine In addition, please specify: Present on Admission (POA): [ ] Yes [ y ] No [ ] Unable to determine For continuity of documentation, please document condition throughout progress notes and discharge summary. Thank You. CLINICAL INDICATORS - SIGNS / SYMPTOMS / LABS 01/29 Dr Rooney He did have brief episode of atrial fibrilation over the weekend 01/29 Vital sign BP 155/73, pulse 83 RISKS FACTORS PN 01/29 - CAD s/p CABG 01/29 - s/p Aortic valve replacement 01/29 - Postop Atrial fibrillation TREATMENTS: JUN 05 Low dose toprol JUN 05 Amiodarone PN 01/29 - Telemetry monitoring PN 01/29 -Incentive spirometry and PT (This form is maintained as a part of the permanent medical record) 2014 [employer]. All Rights Reserved [email or web address] [not provided] [email or web address]
== END 2019-01-30 11:00 | disposition home or self-care (01) | DRG 220 ==
LOC: SURG A 01-25 05:43 → CCU 01-25 11:51
PROVIDERS: ADMIT Thoracic Surgery (Cardiothoracic Vascular Surgery); ATTEND Thoracic Surgery (Cardiothoracic Vascular Surgery)
PROC: 02RF08Z Replacement of Aortic Valve with Zooplastic Tissue, Open Approach (ICD-10-PCS; principal; 2019-01-25)
PROC: 021109W Bypass Coronary Artery, Two Arteries from Aorta with Autologous Venous Tissue, Open Approach (ICD-10-PCS; 2019-01-25)
PROC: 02110Z9 Bypass Coronary Artery, Two Arteries from Left Internal Mammary, Open Approach (ICD-10-PCS; 2019-01-25)
PROC: 06BQ4ZZ Excision of Left Saphenous Vein, Percutaneous Endoscopic Approach (ICD-10-PCS; 2019-01-25)
PROC: 5A1221Z Performance of Cardiac Output, Continuous (ICD-10-PCS; 2019-01-25)
DX: I35.0 Nonrheumatic aortic (valve) stenosis (principal); I97.190 Other postprocedural cardiac functional disturbances following cardiac surgery; I25.10 Atherosclerotic heart disease of native coronary artery without angina pectoris; Z91.040 Latex allergy status; Z88.8 Allergy status to other drugs, medicaments and biological substances; Z85.828 Personal history of other malignant neoplasm of skin; I48.0 Paroxysmal atrial fibrillation
CPT/HCPCS: 36416; 36430; 71045; 80048; 82805; 85025; 85027; 85610; 85730; 86850; 86900; 86901; 93005; 93010; 93798; 94150; J0282; J0461; J0690; J1642; J1644; J1650; J1815; J1885; J2001; J2150; J2250; J2405; J2440; J2720; J3010; J3370; J3475; J3480; J3490; J7070; P9045; S0017; S0028

== ENCOUNTER 2020-07-07 08:34 | Outpatient (CLI) | payer MEDICARE ==
[2020-07-07] MEDS ORDERED: Magnevist 469MG/ML 20 ML VIAL ONE (14:58)
== END 2020-07-07 08:35 | disposition home or self-care (01) ==
LOC: TBSIIMAG 08:34
PROVIDERS: ATTEND Nurse Practitioner Family
DX: M51.16 Intervertebral disc disorders with radiculopathy, lumbar region (principal); M47.26 Other spondylosis with radiculopathy, lumbar region; Z98.890 Other specified postprocedural states
CPT/HCPCS: 72100; 72158; 82565; A9579

== ENCOUNTER 2021-06-30 10:20 | Outpatient (CLI) | payer MEDICARE | END 2021-06-30 10:21 | disposition home or self-care (01) | LOC: BICULT 10:20 | PROVIDERS: ATTEND Internal Medicine Cardiovascular Disease | DX: I77.9 Disorder of arteries and arterioles, unspecified (principal); E04.1 Nontoxic single thyroid nodule | CPT/HCPCS: 76536 ==

== ENCOUNTER 2022-04-11 02:44 | Observation (INO) | payer MEDICARE ==
[2022-04-11 04:16] LABS: #Eosinphils 0.2 thou/uL (0.0-0.7); #Monocytes 1.2 thou/uL (0.11-0.59); #Neutrophils 6.5 thou/uL (1.40-6.50); %Basophils 0.2 % (0.0-1.0); %Eosinophils 1.6 % (0.0-10.0); %Lymphocytes 20.4 % (21.0-51.0); %Monocytes 12.1 % (0.0-10.0); %Neutrophils 65.6 % (42.0-75.0); Hemoglobin 12.4 g/dL (14.0-18.0); Mean Corpuscular HGB CONC 34.7 g/dL (32.0-36.0); Mean Corpuscular Volume 95.1 fl (78.0-98.0); Mean Platelet Volume 7.9 fL (7.4-10.4); Platelet Count 163 10x3/uL (130-400); RBC Distribution Width 11.5 % (11.5-14.5); Red Blood Cell (RBC) Count 3.76 mill/uL (4.70-6.10)
[2022-04-11 04:38] LABS: ALT (SGPT) 11 U/L (8-55); AST (SGOT) 20 U/L (5-34); Albumin 3.5 g/dL (3.4-4.8); Alkaline Phosphatase 74 U/L (40-110); Anion Gap 16 mmol/L (10-20); BUN (Urea Nitrogen) 27 mg/dL (8.4-25.7); Bilirubin, Total 0.7 mg/dL (0.2-1.2); Calc. Creatinine Clearance 0 mL/min (70-130); Calcium 8.3 mg/dL (7.8-10.44); Carbon Dioxide 22 mmol/L (23-31); Chloride 103 mmol/L (98-107); Estimated GFR 44; Globulin 2.5 g/dL (2.4-3.5); Glucose 112 mg/dL (83-110); Potassium 3.6 mmol/L (3.5-5.1); Sodium 137 mmol/L (136-145)
[2022-04-11 05:00] LABS: CKMB 1.7 ng/mL (0-6.6)
[2022-04-11] MEDS ORDERED: Aspirin Chewable 81 MG TAB ONE (06:06)
[2022-04-11 08:16] LABS: Troponin I 0.133 ng/mL (< 0.028)
[2022-04-11 09:32] LABS: SARS-CoV-2 NAA Rapid Test Not Detected (NotDetected)
[2022-04-11 09:48] LABS: Troponin I 0.118 ng/mL (< 0.028)
[2022-04-11] MEDS ORDERED: Ondansetron ODT 4 MG TAB PO PRN (10:11)
[2022-04-11] MEDS ORDERED: Ondansetron PF 4 MG/2 ML Vial IVP PRN (10:11)
[2022-04-11] MEDS ORDERED: Acetaminophen 325 MG TAB PO PRN (10:11)
[2022-04-11] MEDS ORDERED: Lactated Ringer's 1,000 ML IV SCH (10:15)
[2022-04-11] MEDS ORDERED: Electrolyte Replacement Protocol 1 EACH FS SCH (10:15)
[2022-04-11] MEDS ORDERED: Amoxicillin/Potassium Clav 875 MG TAB PO SCH (10:30)
[2022-04-11] MEDS ORDERED: Amoxicillin/Potassium Clav 875 MG TAB ONE (10:49)
[2022-04-11] MEDS ORDERED: Metoprolol Tartrate 25 MG TAB ONE (10:49)
[2022-04-11] MEDS ORDERED: Iopamidol-370 76% 500 ML 1 ML ONE (11:14)
[2022-04-11 11:43] LABS: CKMB 2.1 ng/mL (0-6.6)
[2022-04-11 13:38] VITALS: BMI 28.8
[2022-04-11 18:40] LABS: INR-International Normal Ratio 1.3; Prothrombin Time 16.6 sec (12.0-14.7)
[2022-04-11] MEDS ORDERED: Warfarin Sodium 5 MG TAB PO SCH (19:15)
[2022-04-11] MEDS: Amiodarone 200 MG TAB PO SCH (20:14)
[2022-04-11] MEDS: Amoxicillin/Potassium Clav 875 MG TAB PO SCH (20:14)
[2022-04-11] MEDS: Atorvastatin Calcium 40 MG TAB PO SCH (20:14)
[2022-04-11] MEDS ORDERED: Polyethylene Glycol 3350 17 GM Packet PO PRN (23:46)
[2022-04-12 05:01] LABS: #Eosinphils 0.4 thou/uL (0.0-0.7); #Lymphocytes 1.4 thou/uL (1.20-3.40); #Neutrophils 5.3 thou/uL (1.40-6.50); %Basophils 0.3 % (0.0-1.0); %Lymphocytes 17.6 % (21.0-51.0); %Monocytes 12.1 % (0.0-10.0); Hemoglobin 12.4 g/dL (14.0-18.0); Mean Corpuscular Hemoglobin 33.7 pg (27.0-31.0); Mean Corpuscular Volume 96.4 fl (78.0-98.0); Mean Platelet Volume 7.7 fL (7.4-10.4); Platelet Count 166 10x3/uL (130-400); RBC Distribution Width 11.5 % (11.5-14.5); Red Blood Cell (RBC) Count 3.68 mill/uL (4.70-6.10); White Blood Cell (WBC) Count 8.1 10x3/uL (4.8-10.8)
[2022-04-12 05:04] LABS: INR-International Normal Ratio 1.3
[2022-04-12 05:16] LABS: Anion Gap 11 mmol/L (10-20); BUN (Urea Nitrogen) 23 mg/dL (8.4-25.7); Calc. Creatinine Clearance 65 mL/min (70-130); Calcium 8.4 mg/dL (7.8-10.44); Carbon Dioxide 27 mmol/L (23-31); Chloride 106 mmol/L (98-107); Estimated GFR 65; Glucose 101 mg/dL (83-110); Magnesium 1.2 mg/dL (1.6-2.6); Potassium 4.1 mmol/L (3.5-5.1); Sodium 140 mmol/L (136-145)
[2022-04-12] MEDS ORDERED: Magnesium Sulfate In Water 4 GM in Premix Bag 1 BAG IVPB SCH (08:00)
[2022-04-12] MEDS: Aspirin 81 mg Enteric Coated Tablet PO SCH (08:16)
[2022-04-12] MEDS: Amoxicillin/Potassium Clav 875 MG TAB PO SCH ×2 (08:16→20:09)
[2022-04-12] MEDS: Amiodarone 200 MG TAB PO SCH ×3 (08:16→20:09)
[2022-04-12] MEDS: Polyethylene Glycol 3350 17 GM Packet PO SCH ×2 (10:05→20:09)
[2022-04-12] MEDS ORDERED: Warfarin Sodium 5 MG TAB PO SCH (17:00)
[2022-04-12] MEDS: Atorvastatin Calcium 40 MG TAB PO SCH (20:09)
[2022-04-12] MEDS: Dabigatran 150 mg Capsule PO SCH (20:09)
[2022-04-13 04:58] LABS: #Eosinphils 0.3 thou/uL (0.0-0.7); #Lymphocytes 1.5 thou/uL (1.20-3.40); #Monocytes 0.8 thou/uL (0.11-0.59); #Neutrophils 4.5 thou/uL (1.40-6.50); %Basophils 0.3 % (0.0-1.0); %Eosinophils 4.1 % (0.0-10.0); %Lymphocytes 21.2 % (21.0-51.0); %Monocytes 11.6 % (0.0-10.0); Mean Corpuscular HGB CONC 34.5 g/dL (32.0-36.0); Mean Corpuscular Hemoglobin 33.5 pg (27.0-31.0); Mean Corpuscular Volume 97.3 fl (78.0-98.0); Mean Platelet Volume 7.4 fL (7.4-10.4); Platelet Count 168 10x3/uL (130-400); RBC Distribution Width 11.6 % (11.5-14.5); Red Blood Cell (RBC) Count 3.57 mill/uL (4.70-6.10); White Blood Cell (WBC) Count 7.2 10x3/uL (4.8-10.8)
[2022-04-13 05:14] LABS: Anion Gap 13 mmol/L (10-20); BUN (Urea Nitrogen) 19 mg/dL (8.4-25.7); Calc. Creatinine Clearance 69 mL/min (70-130); Calcium 8.5 mg/dL (7.8-10.44); Carbon Dioxide 25 mmol/L (23-31); Chloride 106 mmol/L (98-107); Estimated GFR 70; Glucose 113 mg/dL (83-110); Magnesium 1.6 mg/dL (1.6-2.6); Sodium 140 mmol/L (136-145)
[2022-04-13] MEDS ORDERED: Magnesium 2 GM/50 ML(in water) 2 GM in Premix Bag 1 BAG IVPB SCH ×2 (05:30→09:00)
[2022-04-13 08:20] VITALS: TEMP 98.3
[2022-04-13 08:56] VITALS: BP 168/77
[2022-04-13] MEDS: Dabigatran 150 mg Capsule PO SCH (09:14)
[2022-04-13] MEDS: Amoxicillin/Potassium Clav 875 MG TAB PO SCH (09:14)
[2022-04-13] MEDS: Aspirin 81 mg Enteric Coated Tablet PO SCH (09:14)
[2022-04-13] MEDS: Polyethylene Glycol 3350 17 GM Packet PO SCH (09:15)
[2022-04-13] MEDS ORDERED: Dronedarone HCl 400 MG TAB PO SCH (17:00)
== END 2022-04-13 11:28 | disposition home or self-care (01) ==
LOC: ERS 02:44 → ERHOLD 05:48 → 2SW 12:59
PROVIDERS: ADMIT Hospitalist; ATTEND Hospitalist
DX: I48.0 Paroxysmal atrial fibrillation (principal); R77.8 Other specified abnormalities of plasma proteins; J32.9 Chronic sinusitis, unspecified; I95.1 Orthostatic hypotension; R42 Dizziness and giddiness; R11.2 Nausea with vomiting, unspecified; R53.1 Weakness; I11.9 Hypertensive heart disease without heart failure; M19.90 Unspecified osteoarthritis, unspecified site; E78.5 Hyperlipidemia, unspecified; I25.10 Atherosclerotic heart disease of native coronary artery without angina pectoris; N17.9 Acute kidney failure, unspecified; I65.22 Occlusion and stenosis of left carotid artery; E86.0 Dehydration; I08.8 Other rheumatic multiple valve diseases; Z86.711 Personal history of pulmonary embolism; Z86.718 Personal history of other venous thrombosis and embolism; Z87.891 Personal history of nicotine dependence; Z79.2 Long term (current) use of antibiotics; Z79.84 Long term (current) use of oral hypoglycemic drugs; Z79.899 Other long term (current) drug therapy; Z88.8 Allergy status to other drugs, medicaments and biological substances; Z91.040 Latex allergy status; Z95.1 Presence of aortocoronary bypass graft; Z95.2 Presence of prosthetic heart valve; Z20.822 Contact with and (suspected) exposure to COVID-19
CPT/HCPCS: 71275; 80048 ×2; 80053; 82553; 83735 ×2; 83880; 84484 ×2; 85025 ×3; 85379; 85610 ×2; 87040; 93005 ×2; 93306; 93880; 96372 ×2; 96374; 97116; 99285; G0378 ×4; J3475; U0002; U0003; U0005; 36415; 93010; J1650; J7120; Q9967

== ENCOUNTER 2022-05-17 08:56 | Outpatient (CLI) | payer MEDICARE | END 2022-05-17 08:57 | disposition home or self-care (01) | LOC: TBSIIMAG 08:56 | PROVIDERS: ATTEND Nurse Practitioner Family | DX: M51.16 Intervertebral disc disorders with radiculopathy, lumbar region (principal); M48.061 Spinal stenosis, lumbar region without neurogenic claudication; Z98.890 Other specified postprocedural states | CPT/HCPCS: 72148 ==

== ENCOUNTER 2022-06-02 12:25 | Outpatient (CLI) | payer MEDICARE | END 2022-06-02 12:26 | disposition home or self-care (01) | LOC: ULT 12:25 | PROVIDERS: ATTEND Physician Assistant Medical | DX: K30 Functional dyspepsia (principal); K21.9 Gastro-esophageal reflux disease without esophagitis; K59.09 Other constipation; R63.4 Abnormal weight loss | CPT/HCPCS: 76700 ==

== ENCOUNTER 2022-06-30 07:27 | Day surgery (SDC) | payer MEDICARE ==
[2022-06-29 10:50] VITALS: BMI 27.1
[2022-06-30] MEDS ORDERED: Lidocaine 1% PF 5 ML VIAL ONE (10:02)
[2022-06-30] MEDS ORDERED: PROPOFOL 200 MG/20 ML VIAL ONE (10:02)
[2022-06-30 10:50] LABS: Hemoglobin A1c 5.5 % (4.0-6.0)
== END 2022-06-30 10:58 | disposition home or self-care (01) ==
LOC: SDC 07:27
PROVIDERS: ATTEND Internal Medicine Gastroenterology
PROC: 0DJ08ZZ Inspection of Upper Intestinal Tract, Via Natural or Artificial Opening Endoscopic (ICD-10-PCS; principal; 2022-06-30)
DX: R11.2 Nausea with vomiting, unspecified (principal); K21.9 Gastro-esophageal reflux disease without esophagitis; M19.90 Unspecified osteoarthritis, unspecified site; I25.10 Atherosclerotic heart disease of native coronary artery without angina pectoris; E10.9 Type 1 diabetes mellitus without complications; E78.00 Pure hypercholesterolemia, unspecified; I49.9 Cardiac arrhythmia, unspecified; Z87.891 Personal history of nicotine dependence; Z79.82 Long term (current) use of aspirin; Z79.84 Long term (current) use of oral hypoglycemic drugs; Z79.899 Other long term (current) drug therapy; Z88.8 Allergy status to other drugs, medicaments and biological substances; Z91.040 Latex allergy status; Z95.1 Presence of aortocoronary bypass graft; Z95.2 Presence of prosthetic heart valve
CPT/HCPCS: 83036; 84443; J2704

== ENCOUNTER 2022-07-20 08:39 | Outpatient (CLI) | payer MEDICARE | END 2022-07-20 08:40 | disposition home or self-care (01) | LOC: NM 08:39 | PROVIDERS: ATTEND Internal Medicine Gastroenterology | DX: R11.10 Vomiting, unspecified (principal); R10.13 Epigastric pain | CPT/HCPCS: 78264; A9541 ==

== ENCOUNTER 2022-09-09 09:00 | Inpatient (IN) | payer MEDICARE ==
[2022-09-09 09:29] VITALS: BMI 28.5
[2022-09-09 09:43] LABS: Hemoglobin 11.8 g/dL (13.5-17.5); Mean Corpuscular HGB CONC 33.3 g/dL (32.0-36.0); Mean Corpuscular Hemoglobin 31.4 pg (27.0-33.0); Mean Corpuscular Volume 94.1 fl (81.2-95.1); Mean Platelet Volume 9.9 fl (7.4-10.4); Platelet Count 230 10x3/uL (150-450); Red Blood Cell (RBC) Count 3.76 10x6/uL (4.32-5.72); White Blood Cell (WBC) Count 7.3 10x3/uL (3.5-10.5)
[2022-09-09 09:56] LABS: INR-International Normal Ratio 1.2; PTT 28.5 sec (22.0-33.0); Prothrombin Time 12.4 sec (9.5-12.1)
[2022-09-09 10:10] LABS: Bilirubin Neg (Negative); Blood, Urine Negative (Negative); Clarity Clear (Clear); Glucose, Urine (Dipstick) Normal (Negative); Ketone, Urine Negative (Negative); Leukocyte Negative (Negative); Nitrite Negative (Negative); Protein, Urine (Dipstick) Negative (Neg-Trace); Urobilinogen Normal mg/dL (Less than 2)
[2022-09-09 10:13] LABS: ALT (SGPT) 14 U/L (8-55); AST (SGOT) 17 U/L (5-34); Albumin 4.1 g/dL (3.4-4.8); Alkaline Phosphatase 99 U/L (40-110); Anion Gap 12 mmol/L (10-20); BUN (Urea Nitrogen) 22 mg/dL (8.4-25.7); Bilirubin, Total 0.6 mg/dL (0.2-1.2); Calc. Creatinine Clearance 57 mL/min (70-130); Carbon Dioxide 28 mmol/L (23-31); Chloride 103 mmol/L (98-107); Estimated GFR 54; Globulin 2.7 g/dL (2.4-3.5); Glucose 119 mg/dL (83-110); Potassium 4.4 mmol/L (3.5-5.1); Protein, Total 6.8 g/dL (5.8-8.1); Sodium 139 mmol/L (136-145)
[2022-09-15] MEDS ORDERED: CEFAZOLIN 1 GM VIAL ONE (06:51)
[2022-09-15] MEDS ORDERED: Heparin 10,000 UNITS/ 10 ML VIAL ONE (06:51)
[2022-09-15] MEDS ORDERED: fentaNYL 50 mcg/mL 1 mL Vial ONE (07:09)
[2022-09-15] MEDS ORDERED: Sevoflurane 250 ML INH ANEST BOTTLE ONE (07:09)
[2022-09-15] MEDS ORDERED: PROPOFOL 200 MG/20 ML VIAL ONE (07:28)
[2022-09-15] MEDS ORDERED: Glycopyrrolate 0.2 MG/ML 5 ML SYRINGE ONE (07:28)
[2022-09-15] MEDS ORDERED: NEOSTIGMINE 3 MG/3 ML SYR 3 MG/3 ML SYRINGE ONE (07:28)
[2022-09-15] MEDS ORDERED: Rocuronium Bromide 10 MG/ML (10ML VIAL) ONE (07:28)
[2022-09-15] MEDS ORDERED: PHENYLEPHRINE-NS 100 MCG/ML 10 ML SYRINGE ONE (07:28)
[2022-09-15] MEDS ORDERED: ePHEDrine Sulfate 50 MG/10 ML VIAL ONE (07:28)
[2022-09-15] MEDS ORDERED: Ondansetron PF 4 MG/2 ML Vial ONE (07:28)
[2022-09-15] MEDS ORDERED: SUGAMMADEX SODIUM 200 MG/2 ML VIAL ONE ×3 (08:37→08:44)
[2022-09-15] MEDS ORDERED: Iopamidol 370 76% 100 ML VIAL ONE (12:17)
== END 2022-09-15 15:16 | disposition home or self-care (01) | DRG 274 ==
LOC: SURG A 09-15 05:56
PROVIDERS: ADMIT Internal Medicine Cardiovascular Disease; ATTEND Internal Medicine Cardiovascular Disease
PROC: 02L73DK Occlusion of Left Atrial Appendage with Intraluminal Device, Percutaneous Approach (ICD-10-PCS; principal; 2022-09-15)
PROC: B24BZZ4 Ultrasonography of Heart with Aorta, Transesophageal (ICD-10-PCS; 2022-09-15)
DX: I48.0 Paroxysmal atrial fibrillation (principal); Z00.6 Encounter for examination for normal comparison and control in clinical research program; Z88.8 Allergy status to other drugs, medicaments and biological substances; Z95.2 Presence of prosthetic heart valve; Z79.899 Other long term (current) drug therapy; Z79.82 Long term (current) use of aspirin; Z79.02 Long term (current) use of antithrombotics/antiplatelets; Z91.040 Latex allergy status
CPT/HCPCS: 33340; 80053; 81003; 85027; 85347; 85610; 85730; 86850; 86900; 86901; 93005; 93010; 93306; 93312; C1759; C1760; C1769; C1894; J0690; J1644; J2405; J2704; J3010; Q9967

== ENCOUNTER 2022-11-12 05:57 | Day surgery (SDC) | payer MEDICARE ==
[2022-11-11 11:53] VITALS: BMI 28.5
[2022-11-12 06:42] LABS: #Eosinphils 0.2 thou/uL (0.0-0.7); #Monocytes 0.8 thou/uL (0.11-0.59); #Neutrophils 4.6 thou/uL (1.40-6.50); %Basophils 0.3 % (0.0-1.0); %Eosinophils 3.1 % (0.0-10.0); %Lymphocytes 22.9 % (21.0-51.0); %Monocytes 10.9 % (0.0-10.0); %Neutrophils 62.4 % (42.0-75.0); Hematocrit 32.4 % (42.0-52.0); Hemoglobin 10.9 g/dL (14.0-18.0); Mean Corpuscular HGB CONC 33.6 g/dL (32.0-36.0); Mean Corpuscular Hemoglobin 32.1 pg (27.0-31.0); Mean Corpuscular Volume 95.3 fl (78.0-98.0); Mean Platelet Volume 9.3 fL (7.4-10.4); Platelet Count 223 10x3/uL (130-400); RBC Distribution Width 12.8 % (11.5-14.5); White Blood Cell (WBC) Count 7.4 10x3/uL (4.8-10.8)
[2022-11-12 07:05] LABS: Anion Gap 11 mmol/L (10-20); BUN (Urea Nitrogen) 23 mg/dL (8.4-25.7); Calc. Creatinine Clearance 56 mL/min (70-130); Calcium 9.1 mg/dL (7.8-10.44); Carbon Dioxide 28 mmol/L (23-31); Chloride 103 mmol/L (98-107); Estimated GFR 53; Glucose 107 mg/dL (83-110); Potassium 3.8 mmol/L (3.5-5.1); Sodium 138 mmol/L (136-145)
[2022-11-12] MEDS ORDERED: Lidocaine 1% PF 5 ML VIAL ONE (08:20)
[2022-11-12] MEDS ORDERED: PROPOFOL 200 MG/20 ML VIAL ONE (08:20)
== END 2022-11-12 09:20 | disposition home or self-care (01) ==
LOC: SDC 05:57
PROVIDERS: ATTEND Internal Medicine Cardiovascular Disease
PROC: B246ZZ4 Ultrasonography of Right and Left Heart, Transesophageal (ICD-10-PCS; principal; 2022-11-12)
DX: I48.0 Paroxysmal atrial fibrillation (principal); Z79.01 Long term (current) use of anticoagulants; Z91.040 Latex allergy status
CPT/HCPCS: 80048; 85025; 93312; J2704

== ENCOUNTER 2023-09-07 08:46 | Inpatient (IN) | payer MEDICARE ==
[2023-09-07 09:27] LABS: #Basophils Less than 0.03 10x3/uL (0.0-0.2); #Eosinphils Less than 0.03 10x3/uL (0.0-0.7); %Basophils 0.1 % (0.0-1.0); %Lymphocytes 7.4 % (21.0-51.0); %Monocytes 5.7 % (0.0-10.0); Hematocrit 27.7 % (42.0-52.0); Hemoglobin 9.7 g/dL (14.0-18.0); Mean Corpuscular Hemoglobin 33.7 pg (27.0-31.0); Mean Corpuscular Volume 96.2 fL (78.0-98.0); Mean Platelet Volume 8.4 fL (7.4-10.4); Platelet Count 336 10x3/uL (130-400); RBC Distribution Width 14.2 % (11.5-14.5); Red Blood Cell (RBC) Count 2.88 mill/uL (4.70-6.10)
[2023-09-07] MEDS ORDERED: Acetaminophen 325 MG TAB ONE (09:46)
[2023-09-07 09:47] LABS: ALT (SGPT) 23 U/L (8-55); AST (SGOT) 16 U/L (5-34); Albumin 3.2 g/dL (3.4-4.8); Alkaline Phosphatase 75 U/L (40-110); Anion Gap 20 mmol/L (10-20); BUN (Urea Nitrogen) 29 mg/dL (8.4-25.7); Bilirubin, Total 0.4 mg/dL (0.2-1.2); Calc. Creatinine Clearance 0 mL/min (70-130); Calcium 10.2 mg/dL (7.8-10.44); Carbon Dioxide 22 mmol/L (23-31); Chloride 98 mmol/L (98-107); Estimated GFR 56; Globulin 3.8 g/dL (2.4-3.5); Glucose 156 mg/dL (83-110); Potassium 4.5 mmol/L (3.5-5.1); Sodium 135 mmol/L (136-145)
[2023-09-07 10:45] LABS: Troponin I 0.026 ng/mL (< 0.028)
[2023-09-07] MEDS ORDERED: cefTRIAXone (ROCEPHIN) 1 GM VIAL ONE (11:04)
[2023-09-07] MEDS ORDERED: Sodium Chloride 0.9% 100 ML ONE (11:04)
[2023-09-07 13:52] LABS: Troponin I 0.021 ng/mL (< 0.028)
[2023-09-07] MEDS ORDERED: Ondansetron PF 4 MG/2 ML Vial IVP PRN (14:11)
[2023-09-07] MEDS ORDERED: Ondansetron ODT 4 MG TAB PO PRN (14:11)
[2023-09-07] MEDS ORDERED: Glucagon 1 MG/ML KIT IM PRN (14:14)
[2023-09-07] MEDS ORDERED: Dextrose 5% in Water 1,000 ML IV PRN (14:14)
[2023-09-07] MEDS ORDERED: Dextrose 50% Abboject 50 ML SYRINGE SLOW IVP PRN (14:14)
[2023-09-07] MEDS ORDERED: Ipratropium/Albuterol 3 ML NEB NEB PRN (14:15)
[2023-09-07] MEDS ORDERED: Benzonatate 100 MG CAP PO PRN (14:15)
[2023-09-07 14:35] LABS: Lactic Acid 4.2 mmol/L (0.5-2.2)
[2023-09-07] MEDS ORDERED: Metoprolol Tartrate 5 MG (5 mL) VIAL ONE ×2 (14:46→18:24)
[2023-09-07] MEDS: Sodium Chloride 0.9% 1,000 ML IV SCH (15:25)
[2023-09-07] MEDS: Metoprolol Tartrate 5 MG (5 mL) VIAL IVP SCH ×2 (15:25→18:41)
[2023-09-07] MEDS ORDERED: HYDROcodone/Acetaminophen 5/325 mg Tablet ONE (16:10)
[2023-09-07] MEDS: HYDROcodone/Acetaminophen 5/325 mg Tablet PO SCH (17:09)
[2023-09-07 17:51] LABS: Anion Gap 15 mmol/L (10-20); BUN (Urea Nitrogen) 29 mg/dL (8.4-25.7); Calc. Creatinine Clearance 73 mL/min (70-130); Carbon Dioxide 23 mmol/L (23-31); Chloride 100 mmol/L (98-107); Estimated GFR 75; Glucose 208 mg/dL (83-110); Potassium 4.4 mmol/L (3.5-5.1); Sodium 134 mmol/L (136-145)
[2023-09-07 17:57] LABS: Troponin I 0.028 ng/mL (< 0.028)
[2023-09-07] MEDS ORDERED: Metoprolol Tartrate 25 MG TAB ONE (18:04)
[2023-09-07 19:50] VITALS: BMI 27.6
[2023-09-07] MEDS: Polyethylene Glycol 3350 17 GM Packet PO SCH (20:51)
[2023-09-07] MEDS: Acetaminophen 325 MG TAB PO PRN (20:51)
[2023-09-07] MEDS: Pantoprazole DR 40 MG TAB PO SCH (20:52)
[2023-09-07] MEDS: Senokot S 8.6-50 MG TAB PO SCH (20:53)
[2023-09-07] MEDS: Ferrous Sulfate 325 MG TAB PO SCH (20:53)
[2023-09-07] MEDS: dilTIAZem 125 MG in Sodium Chloride 0.9% 100 ML IVPB SCH (22:47)
[2023-09-07] MEDS: Morphine 4 MG/ML VIAL SLOW IVP SCH (23:01)
[2023-09-08 05:44] LABS: #Basophils Less than 0.03 10x3/uL (0.0-0.2); %Basophils 0.1 % (0.0-1.0); %Eosinophils 0.5 % (0.0-10.0); %Lymphocytes 11.2 % (21.0-51.0); %Neutrophils 80.5 % (42.0-75.0); Hematocrit 22.9 % (42.0-52.0); Hemoglobin 7.8 g/dL (14.0-18.0); Mean Corpuscular HGB CONC 34.1 g/dL (32.0-36.0); Mean Corpuscular Hemoglobin 32.9 pg (27.0-31.0); Mean Corpuscular Volume 96.6 fL (78.0-98.0); Mean Platelet Volume 8.8 fL (7.4-10.4); Platelet Count 301 10x3/uL (130-400); RBC Distribution Width 14.6 % (11.5-14.5); Red Blood Cell (RBC) Count 2.37 mill/uL (4.70-6.10)
[2023-09-08 06:03] LABS: Anion Gap 10 mmol/L (10-20); BUN (Urea Nitrogen) 24 mg/dL (8.4-25.7); Calc. Creatinine Clearance 73 mL/min (70-130); Calcium 8.7 mg/dL (7.8-10.44); Carbon Dioxide 26 mmol/L (23-31); Chloride 104 mmol/L (98-107); Estimated GFR 78; Glucose 140 mg/dL (83-110); Potassium 4.3 mmol/L (3.5-5.1); Sodium 136 mmol/L (136-145)
[2023-09-08] MEDS: Aspirin 81 mg Enteric Coated Tablet PO SCH (08:46)
[2023-09-08] MEDS: Donepezil HCl 10 MG TAB PO SCH (08:46)
[2023-09-08] MEDS: dilTIAZem 125 MG in Sodium Chloride 0.9% 100 ML IVPB SCH (08:47)
[2023-09-08 09:32] LABS: Magnesium 1.6 mg/dL (1.6-2.6)
[2023-09-08] MEDS: cefTRIAXone\\ROCEPHIN 2 GM in Sodium Chloride 0.9% 100 ML IVPB SCH (12:54)
[2023-09-08] MEDS: Magnesium 2 GM/50 ML(in water) 2 GM in Premix 1 BAG IVPB SCH ×2 (12:55→15:52)
[2023-09-08 14:18] LABS: Bilirubin Negative (Negative); Blood, Urine Negative (Negative); Clarity Clear (Clear); Glucose, Urine (Dipstick) Normal (Negative); Ketone, Urine Negative (Negative); Leukocyte Negative Leu/uL (Negative); Nitrite Negative (Negative); Protein, Urine (Dipstick) Negative (Neg-Trace); RBC/HPF 0-3 HPF (0-3); Specific Gravity, Urine 1.019 (1.002-1.036); Squamous Epithelial None Seen HPF (0-3); Urobilinogen Normal mg/dL (Less than 2); WBC/HPF 0-3 HPF (0-3)
[2023-09-08 14:19] LABS: Bacteria/HPF Rare-Few HPF (None Seen)
[2023-09-08 15:35] LABS: Iron 44 ug/dL (65-175); Iron Binding Capacity, Total 200 mcg/dL (261-462)
[2023-09-08] MEDS: Sodium Ferric Gluconate 250 MG in Sodium Chloride 0.9% 250 ML 250 ML IVPB SCH (16:54)
[2023-09-08] MEDS: HumaLOG 300 UNITS/3 ML VIAL SC PRN (17:04)
[2023-09-08 17:20] LABS: Hematocrit 23.7 % (42.0-52.0)
[2023-09-08] MEDS: Terazosin HCl 5 MG CAP PO SCH (20:36)
[2023-09-08] MEDS: Atorvastatin Calcium 20 MG TAB PO SCH (20:37)
[2023-09-09 04:24] LABS: #Basophils Less than 0.03 10x3/uL (0.0-0.2); %Basophils 0.1 % (0.0-1.0); %Eosinophils 1.1 % (0.0-10.0); %Lymphocytes 11.9 % (21.0-51.0); %Monocytes 8.1 % (0.0-10.0); %Neutrophils 77.4 % (42.0-75.0); Hematocrit 23.3 % (42.0-52.0); Hemoglobin 7.8 g/dL (14.0-18.0); Mean Corpuscular HGB CONC 33.5 g/dL (32.0-36.0); Mean Corpuscular Hemoglobin 33.5 pg (27.0-31.0); Mean Platelet Volume 8.4 fL (7.4-10.4); Platelet Count 292 10x3/uL (130-400); RBC Distribution Width 14.7 % (11.5-14.5); Red Blood Cell (RBC) Count 2.33 mill/uL (4.70-6.10)
[2023-09-09 05:14] LABS: Anion Gap 13 mmol/L (10-20); BUN (Urea Nitrogen) 20 mg/dL (8.4-25.7); Calc. Creatinine Clearance 71 mL/min (70-130); Calcium 8.7 mg/dL (7.8-10.44); Carbon Dioxide 24 mmol/L (23-31); Chloride 107 mmol/L (98-107); Estimated GFR 76; Glucose 130 mg/dL (83-110); Magnesium 2.3 mg/dL (1.6-2.6); Potassium 4.7 mmol/L (3.5-5.1); Sodium 139 mmol/L (136-145)
[2023-09-09] MEDS: Sodium Ferric Gluconate 250 MG in Sodium Chloride 0.9% 250 ML 250 ML IVPB SCH (14:37)
[2023-09-09] MEDS: Digoxin 0.5 MG/2 ML AMP SLOW IVP SCH (14:38)
[2023-09-09] MEDS: dilTIAZem ER 60 MG CAP PO SCH (14:38)
[2023-09-10] MEDS: Digoxin 0.5 MG/2 ML AMP SLOW IVP SCH (05:31)
[2023-09-10 10:28] LABS: Hematocrit 23.5 % (42.0-52.0)
[2023-09-10] MEDS: HumaLOG 300 UNITS/3 ML VIAL SC PRN (21:35)
[2023-09-11 06:18] LABS: #Basophils Less than 0.03 10x3/uL (0.0-0.2); %Basophils 0.1 % (0.0-1.0); %Eosinophils 0.6 % (0.0-10.0); %Lymphocytes 8.9 % (21.0-51.0); %Monocytes 9.1 % (0.0-10.0); %Neutrophils 79.7 % (42.0-75.0); Hematocrit 25.5 % (42.0-52.0); Hemoglobin 8.5 g/dL (14.0-18.0); Mean Corpuscular HGB CONC 33.3 g/dL (32.0-36.0); Mean Corpuscular Hemoglobin 33.6 pg (27.0-31.0); Mean Corpuscular Volume 100.8 fL (78.0-98.0); Mean Platelet Volume 8.4 fL (7.4-10.4); Platelet Count 331 10x3/uL (130-400); RBC Distribution Width 15.9 % (11.5-14.5); Red Blood Cell (RBC) Count 2.53 mill/uL (4.70-6.10)
[2023-09-11 08:06] LABS: Anion Gap 16 mmol/L (10-20); BUN (Urea Nitrogen) 18 mg/dL (8.4-25.7); Calc. Creatinine Clearance 71 mL/min (70-130); Carbon Dioxide 20 mmol/L (23-31); Chloride 107 mmol/L (98-107); Potassium 4.1 mmol/L (3.5-5.1); Sodium 139 mmol/L (136-145)
[2023-09-11 08:07] LABS: Calcium 8.8 mg/dL (7.8-10.44); Estimated GFR 77; Glucose 147 mg/dL (83-110); Magnesium 1.7 mg/dL (1.6-2.6)
[2023-09-11] MEDS: Cefdinir 300 MG CAP PO SCH (08:51)
[2023-09-11] MEDS: Digoxin 0.125 MG TAB PO SCH (08:51)
[2023-09-11 09:14] LABS: Digoxin 1.18 ng/mL (0.8-2.0)
[2023-09-11] MEDS: Magnesium 2 GM/50 ML(in water) 2 GM in Premix 1 BAG IVPB SCH (10:53)
[2023-09-11] MEDS: metFORMIN 500 MG TAB PO SCH (15:59)
[2023-09-12 08:06] LABS: Anion Gap 15 mmol/L (10-20); BUN (Urea Nitrogen) 20 mg/dL (8.4-25.7); Calc. Creatinine Clearance 71 mL/min (70-130); Calcium 8.9 mg/dL (7.8-10.44); Carbon Dioxide 22 mmol/L (23-31); Chloride 106 mmol/L (98-107); Estimated GFR 76; Glucose 143 mg/dL (83-110); Magnesium 1.9 mg/dL (1.6-2.6); Potassium 4.3 mmol/L (3.5-5.1); Sodium 139 mmol/L (136-145)
[2023-09-12] MEDS: Digoxin 0.25 MG TAB PO SCH (08:26)
[2023-09-12 11:14] LABS: Digoxin 1.06 ng/mL (0.8-2.0)
[2023-09-12] MEDS ORDERED: PROPOFOL 40 ML ONE (13:38)
[2023-09-12] MEDS ORDERED: PHENYLEPHRINE-NS 100 MCG/ML 10 ML SYRINGE ONE (13:39)
[2023-09-12] MEDS: Dronedarone HCl 400 MG TAB PO SCH (17:46)
[2023-09-13 07:38] LABS: #Basophils 0.03 10x3/uL (0.0-0.2); %Basophils 0.2 % (0.0-1.0); %Lymphocytes 9.5 % (21.0-51.0); %Monocytes 7.6 % (0.0-10.0); %Neutrophils 80.7 % (42.0-75.0); Hematocrit 26.6 % (42.0-52.0); Hemoglobin 8.9 g/dL (14.0-18.0); Mean Corpuscular HGB CONC 33.5 g/dL (32.0-36.0); Mean Corpuscular Hemoglobin 33.3 pg (27.0-31.0); Mean Corpuscular Volume 99.6 fL (78.0-98.0); Mean Platelet Volume 8.2 fL (7.4-10.4); Platelet Count 383 10x3/uL (130-400); RBC Distribution Width 16.3 % (11.5-14.5); Red Blood Cell (RBC) Count 2.67 mill/uL (4.70-6.10)
[2023-09-13 07:50] LABS: Anion Gap 12 mmol/L (10-20); BUN (Urea Nitrogen) 19 mg/dL (8.4-25.7); Calc. Creatinine Clearance 67 mL/min (70-130); Calcium 8.9 mg/dL (7.8-10.44); Carbon Dioxide 22 mmol/L (23-31); Chloride 106 mmol/L (98-107); Estimated GFR 71; Glucose 129 mg/dL (83-110); Potassium 4.3 mmol/L (3.5-5.1); Sodium 136 mmol/L (136-145)
[2023-09-13 10:24] VITALS: BMI 27.6
[2023-09-13 11:42] VITALS: BP 128/58; TEMP 98.1
== END 2023-09-13 13:50 | disposition home or self-care (01) | DRG 871 ==
LOC: ERS 08:46 → ERHOLD 13:05 → 2NO 19:32 → UNDODISIN 09-09 20:35
PROVIDERS: ADMIT Internal Medicine; ATTEND Internal Medicine
PROC: 3E03329 Introduction of Other Anti-infective into Peripheral Vein, Percutaneous Approach (ICD-10-PCS; 2023-09-07)
PROC: 5A2204Z Restoration of Cardiac Rhythm, Single (ICD-10-PCS; principal; 2023-09-12)
DX: A41.9 Sepsis, unspecified organism (principal); J18.9 Pneumonia, unspecified organism; I48.92 Unspecified atrial flutter; I10 Essential (primary) hypertension; I48.0 Paroxysmal atrial fibrillation; J32.9 Chronic sinusitis, unspecified; I27.20 Pulmonary hypertension, unspecified; M19.90 Unspecified osteoarthritis, unspecified site; I65.23 Occlusion and stenosis of bilateral carotid arteries; G47.33 Obstructive sleep apnea (adult) (pediatric); I25.10 Atherosclerotic heart disease of native coronary artery without angina pectoris; D63.8 Anemia in other chronic diseases classified elsewhere; G89.29 Other chronic pain; M54.50 Low back pain, unspecified; D64.9 Anemia, unspecified; E11.9 Type 2 diabetes mellitus without complications; R41.89 Other symptoms and signs involving cognitive functions and awareness; Z96.653 Presence of artificial knee joint, bilateral; Z98.890 Other specified postprocedural states; Z88.8 Allergy status to other drugs, medicaments and biological substances; Z95.1 Presence of aortocoronary bypass graft; Z91.040 Latex allergy status; Z79.899 Other long term (current) drug therapy; Z79.82 Long term (current) use of aspirin; Z98.1 Arthrodesis status; Z87.891 Personal history of nicotine dependence
CPT/HCPCS: 36415; 36416; 71045; 80048; 80053; 80162; 81001; 82728; 83540; 83550; 83605; 83735; 83880; 84145; 84484; 85014; 85018; 85025; 87040; 92960; 93005; 93010; J0696; J1160; J1815; J2270; J2704; J2916; J3475; J3490; J7050

== ENCOUNTER 2023-10-03 13:29 | Inpatient (IN) | payer MEDICARE ==
[~2023-10-03 13:29] MED LIST: Iopamidol-370 76% 500 ML MDV (1 ML CHARGE) ONE
[2023-10-03 14:03] LABS: #Basophils Less than 0.03 10x3/uL (0.0-0.2); %Basophils 0.1 % (0.0-1.0); %Eosinophils 0.3 % (0.0-10.0); %Lymphocytes 10.1 % (21.0-51.0); %Monocytes 7.3 % (0.0-10.0); %Neutrophils 81.6 % (42.0-75.0); Hematocrit 36.6 % (42.0-52.0); Hemoglobin 12.3 g/dL (14.0-18.0); Mean Corpuscular HGB CONC 33.6 g/dL (32.0-36.0); Mean Corpuscular Volume 101.1 fL (78.0-98.0); Mean Platelet Volume 8.7 fL (7.4-10.4); Platelet Count 304 10x3/uL (130-400); RBC Distribution Width 15.5 % (11.5-14.5); Red Blood Cell (RBC) Count 3.62 mill/uL (4.70-6.10)
[2023-10-03 14:19] LABS: ALT (SGPT) 15 U/L (8-55); AST (SGOT) 17 U/L (5-34); Albumin 3.7 g/dL (3.4-4.8); Alkaline Phosphatase 110 U/L (40-110); Anion Gap 15 mmol/L (10-20); BUN (Urea Nitrogen) 21 mg/dL (8.4-25.7); Bilirubin, Total 0.4 mg/dL (0.2-1.2); Calc. Creatinine Clearance 0 mL/min (70-130); Calcium 9.5 mg/dL (7.8-10.44); Carbon Dioxide 24 mmol/L (23-31); Chloride 103 mmol/L (98-107); Estimated GFR 67; Globulin 3.2 g/dL (2.4-3.5); Glucose 176 mg/dL (83-110); Lipase 10 U/L (8-78); Potassium 4.2 mmol/L (3.5-5.1); Protein, Total 6.9 g/dL (5.8-8.1); Sodium 138 mmol/L (136-145)
[2023-10-03 14:24] LABS: Troponin I 0.037 ng/mL (< 0.028)
[2023-10-03] MEDS ORDERED: Famotidine/PF 20 mg/2ml Vial ONE (15:47)
[2023-10-03] MEDS ORDERED: Pantoprazole 40 MG VIAL ONE (15:47)
[2023-10-03] MEDS ORDERED: Ondansetron PF 4 MG/2 ML Vial ONE (15:47)
[2023-10-03 16:00] LABS: Digoxin 0.48 ng/mL (0.8-2.0)
[2023-10-03 16:17] LABS: Bacteria/HPF None Seen HPF (None Seen); Bilirubin Negative (Negative); Blood, Urine Negative (Negative); CAUTI Indications for Culture Pelvic or flank pain; Clarity Clear (Clear); Glucose, Urine (Dipstick) Normal (Negative); Ketone, Urine Negative (Negative); Leukocyte Negative Leu/uL (Negative); Nitrite Negative (Negative); Protein, Urine (Dipstick) 20 mg/dL (Neg-Trace); Squamous Epithelial 0-3 HPF (0-3); Urobilinogen Normal mg/dL (Less than 2); WBC/HPF 0-3 HPF (0-3); pH, Urine 7.5 (5.0-9.0)
[2023-10-03 16:18] LABS: Specific Gravity, Urine 1.044 (1.002-1.036)
[2023-10-03 16:19] LABS: Urine Culture Reflex No No
[2023-10-03] MEDS ORDERED: Calcium Carbonate 500 MG ChewTAB PO PRN (16:29)
[2023-10-03] MEDS ORDERED: Senokot S 8.6-50 MG TAB PO PRN (16:29)
[2023-10-03] MEDS ORDERED: Ondansetron PF 4 MG/2 ML Vial IVP PRN (16:29)
[2023-10-03] MEDS ORDERED: Morphine 2 MG/ML VIAL SLOW IVP PRN (17:00)
[2023-10-03 18:14] LABS: Troponin I 0.042 ng/mL (< 0.028)
[2023-10-03] MEDS: Ciprofloxacin Lactate/D5W 400 MG in Premix 1 BAG IVPB SCH (20:16)
[2023-10-03] MEDS: Sodium Chloride 0.9% 1,000 ML IV SCH (20:16)
[2023-10-03] MEDS: Terazosin HCl 5 MG CAP PO SCH (20:16)
[2023-10-03] MEDS: Dronedarone HCl 400 MG TAB PO SCH (20:17)
[2023-10-03] MEDS: Acetaminophen 325 MG TAB PO SCH (20:17)
[2023-10-03] MEDS: Atorvastatin Calcium 40 MG TAB PO SCH (20:17)
[2023-10-03] MEDS: Pantoprazole 40 MG VIAL IVP SCH (20:18)
[2023-10-03 20:43] VITALS: BMI 28.1
[2023-10-03] MEDS: metroNIDAZOLE 500 MG in Premix 1 BAG IVPB SCH (21:51)
[2023-10-03] MEDS: Enoxaparin 100 MG (1 mL) SYRINGE SC SCH (21:52)
[2023-10-03] MEDS ORDERED: dilTIAZem ER 60 MG CAP PO SCH (22:00)
[2023-10-03 23:29] LABS: Troponin I 0.058 ng/mL (< 0.028)
[2023-10-04 05:03] LABS: #Basophils Less than 0.03 10x3/uL (0.0-0.2); %Basophils 0.2 % (0.0-1.0); %Eosinophils 1.1 % (0.0-10.0); %Lymphocytes 14.5 % (21.0-51.0); %Monocytes 8.4 % (0.0-10.0); %Neutrophils 75.2 % (42.0-75.0); Hematocrit 29.2 % (42.0-52.0); Hemoglobin 9.6 g/dL (14.0-18.0); Mean Corpuscular HGB CONC 32.9 g/dL (32.0-36.0); Mean Corpuscular Hemoglobin 32.9 pg (27.0-31.0); Mean Platelet Volume 9.2 fL (7.4-10.4); Platelet Count 245 10x3/uL (130-400); RBC Distribution Width 15.2 % (11.5-14.5); Red Blood Cell (RBC) Count 2.92 mill/uL (4.70-6.10)
[2023-10-04 05:18] LABS: ALT (SGPT) 11 U/L (8-55); AST (SGOT) 13 U/L (5-34); Albumin 2.9 g/dL (3.4-4.8); Alkaline Phosphatase 83 U/L (40-110); Anion Gap 14 mmol/L (10-20); BUN (Urea Nitrogen) 17 mg/dL (8.4-25.7); Bilirubin, Total 0.4 mg/dL (0.2-1.2); Calc. Creatinine Clearance 73 mL/min (70-130); Carbon Dioxide 24 mmol/L (23-31); Cardiac Risk 2.7 (Less than 4.5); Chloride 106 mmol/L (98-107); Cholesterol 104 mg/dl (< 200 Desired); Estimated GFR 78; Globulin 2.8 g/dL (2.4-3.5); Glucose 114 mg/dL (83-110); HDL Cholesterol 38 mg/dL (>60 Neg Risk); LDL Cholesterol, Calculated 55 mg/dL; Magnesium 1.8 mg/dL (1.6-2.6); Potassium 4.3 mmol/L (3.5-5.1); Protein, Total 5.7 g/dL (5.8-8.1); Sodium 140 mmol/L (136-145); Triglycerides 55 mg/dL (Less than 150)
[2023-10-04 05:24] LABS: Hemoglobin A1c 5.8 % (4.0-6.0)
[2023-10-04] MEDS ORDERED: Lidocaine 1% PF 5 ML VIAL ONE (08:43)
[2023-10-04] MEDS ORDERED: PROPOFOL 20 ML ONE (08:43)
[2023-10-04] MEDS ORDERED: TRAMADOL HCL 300 MG PO SCH (09:00)
[2023-10-04] MEDS ORDERED: PHENYLEPHRINE-NS 100 MCG/ML 10 ML SYRINGE ONE (09:12)
[2023-10-04] MEDS: Digoxin 0.25 MG TAB PO SCH (10:33)
[2023-10-04] MEDS: Donepezil HCl 10 MG TAB PO SCH (10:33)
[2023-10-04] MEDS: Aspirin 81 mg Enteric Coated Tablet PO SCH (10:34)
[2023-10-04] MEDS: Sodium Ferric Gluconate 250 MG in Sodium Chloride 0.9% 250 ML 250 ML IVPB SCH (11:39)
[2023-10-04 15:59] LABS: Hematocrit 29.9 % (42.0-52.0); Hemoglobin 9.7 g/dL (14.0-18.0)
[2023-10-05 04:33] LABS: #Basophils 0.03 10x3/uL (0.0-0.2); %Basophils 0.3 % (0.0-1.0); %Eosinophils 2.2 % (0.0-10.0); %Lymphocytes 15.1 % (21.0-51.0); %Monocytes 9.5 % (0.0-10.0); Hematocrit 31.8 % (42.0-52.0); Hemoglobin 10.4 g/dL (14.0-18.0); Mean Corpuscular HGB CONC 32.7 g/dL (32.0-36.0); Mean Corpuscular Hemoglobin 32.4 pg (27.0-31.0); Mean Corpuscular Volume 99.1 fL (78.0-98.0); Mean Platelet Volume 9.5 fL (7.4-10.4); Platelet Count 253 10x3/uL (130-400); RBC Distribution Width 14.8 % (11.5-14.5); Red Blood Cell (RBC) Count 3.21 mill/uL (4.70-6.10)
[2023-10-05 04:52] LABS: Anion Gap 12 mmol/L (10-20); BUN (Urea Nitrogen) 11 mg/dL (8.4-25.7); Calc. Creatinine Clearance 79 mL/min (70-130); Calcium 8.6 mg/dL (7.8-10.44); Carbon Dioxide 26 mmol/L (23-31); Chloride 109 mmol/L (98-107); Estimated GFR 85; Glucose 105 mg/dL (83-110); Potassium 4.4 mmol/L (3.5-5.1); Sodium 143 mmol/L (136-145)
[2023-10-05 08:34] VITALS: TEMP 98.3
[2023-10-05 12:00] VITALS: BP 169/90
== END 2023-10-05 14:15 | disposition home or self-care (01) | DRG 384 ==
LOC: SUATTDRO 13:29 → ERS 13:29 → 2SW 16:29 → OBSVTOIN 10-05 09:29
PROVIDERS: ADMIT Internal Medicine; ATTEND Internal Medicine
PROC: 0DB68ZX Excision of Stomach, Via Natural or Artificial Opening Endoscopic, Diagnostic (ICD-10-PCS; principal; 2023-10-04)
PROC: 0DB98ZX Excision of Duodenum, Via Natural or Artificial Opening Endoscopic, Diagnostic (ICD-10-PCS; 2023-10-04)
DX: K26.9 Duodenal ulcer, unspecified as acute or chronic, without hemorrhage or perforation (principal); I77.4 Celiac artery compression syndrome; K55.1 Chronic vascular disorders of intestine; I25.810 Atherosclerosis of coronary artery bypass graft(s) without angina pectoris; K29.70 Gastritis, unspecified, without bleeding; E11.9 Type 2 diabetes mellitus without complications; E78.00 Pure hypercholesterolemia, unspecified; M19.90 Unspecified osteoarthritis, unspecified site; D64.9 Anemia, unspecified; K21.9 Gastro-esophageal reflux disease without esophagitis; I10 Essential (primary) hypertension; E78.5 Hyperlipidemia, unspecified; I25.10 Atherosclerotic heart disease of native coronary artery without angina pectoris; I48.0 Paroxysmal atrial fibrillation; Z88.8 Allergy status to other drugs, medicaments and biological substances; Z91.040 Latex allergy status; Z98.890 Other specified postprocedural states; Z95.1 Presence of aortocoronary bypass graft; Z79.82 Long term (current) use of aspirin; Z79.84 Long term (current) use of oral hypoglycemic drugs
CPT/HCPCS: 36415; 36416; 71045; 74174; 80048; 80053; 80061; 80162; 81001; 82607; 83036; 83605; 83690; 83735; 83880; 84484; 85025; 86141; 87040; 88305; 93005; 94760; 96372; 96374; 96375; 96376; C9113; G0378; J0744; J1650; J2405; J2704; J2916; J7050; Q9967; S0028

== ENCOUNTER 2024-04-24 02:18 | Inpatient (IN) | payer MEDICARE ==
[2024-04-24 03:45] LABS: #Basophils Less than 0.03 10x3/uL (0.0-0.2); %Basophils 0.1 % (0.0-1.0); %Eosinophils 0.5 % (0.0-10.0); %Lymphocytes 6.7 % (21.0-51.0); %Monocytes 11.3 % (0.0-10.0); %Neutrophils 80.9 % (42.0-75.0); Hematocrit 30.2 % (42.0-52.0); Hemoglobin 10.3 g/dL (14.0-18.0); Mean Corpuscular HGB CONC 34.1 g/dL (32.0-36.0); Mean Corpuscular Hemoglobin 31.8 pg (27.0-31.0); Mean Corpuscular Volume 93.2 fL (78.0-98.0); Mean Platelet Volume 9.1 fL (7.4-10.4); Platelet Count 248 10x3/uL (130-400); RBC Distribution Width 12.9 % (11.5-14.5); Red Blood Cell (RBC) Count 3.24 mill/uL (4.70-6.10)
[2024-04-24] MEDS ORDERED: Azithromycin 500 MG VIAL ONE (03:48)
[2024-04-24 04:24] LABS: ALT (SGPT) 25 U/L (Less than 45); AST (SGOT) 34 U/L (11-34); Albumin 2.9 g/dL (3.1-4.5); Alkaline Phosphatase 98 U/L (40-110); Anion Gap 14 mmol/L (10-20); BUN (Urea Nitrogen) 19 mg/dL (8.4-25.7); Bilirubin, Total 0.8 mg/dL (0.3-1.2); Calc. Creatinine Clearance 0 mL/min (70-130); Carbon Dioxide 24 mmol/L (23-31); Chloride 100 mmol/L (98-107); Estimated GFR 54; Globulin 4.3 g/dL (2.4-3.5); Glucose 193 mg/dL (83-110); Lipase 5 U/L (8-78); Magnesium 1.6 mg/dL (1.6-2.6); Potassium 4.4 mmol/L (3.5-5.1); Protein, Total 7.2 g/dL (5.8-8.1); Sodium 134 mmol/L (136-145)
[2024-04-24 04:26] LABS: Troponin I 0.024 ng/mL (< 0.028)
[2024-04-24 04:58] LABS: Bacteria/HPF None Seen HPF (None Seen); Bilirubin Negative (Negative); Blood, Urine Negative (Negative); CAUTI Indications for Culture Dysuria,urgency,freq; Clarity Clear (Clear); Glucose, Urine (Dipstick) Normal (Negative); Ketone, Urine Negative (Negative); Leukocyte Negative Leu/uL (Negative); Nitrite Negative (Negative); Protein, Urine (Dipstick) 30 mg/dL (Neg-Trace); Specific Gravity, Urine 1.022 (1.002-1.036); Squamous Epithelial None Seen HPF (0-3); WBC/HPF 0-3 HPF (0-3); pH, Urine 6.5 (5.0-9.0)
[2024-04-24 04:59] LABS: Urine Culture Reflex No No
[2024-04-24] MEDS ORDERED: cefTRIAXone (ROCEPHIN) 2 GM VIAL ONE (04:59)
[2024-04-24] MEDS ORDERED: Sodium Chloride 0.9% 100 ML ONE (04:59)
[2024-04-24 06:18] VITALS: BMI 30.4
[2024-04-24] MEDS ORDERED: Bisacodyl 5 MG TAB PO PRN (07:46)
[2024-04-24] MEDS ORDERED: Calcium Carbonate 500 MG ChewTAB PO PRN (07:46)
[2024-04-24] MEDS ORDERED: Senokot S 8.6-50 MG TAB PO PRN (07:46)
[2024-04-24] MEDS ORDERED: Ondansetron ODT 4 MG TAB PO PRN (07:46)
[2024-04-24] MEDS ORDERED: Ondansetron PF 4 MG/2 ML Vial IVP PRN (07:46)
[2024-04-24] MEDS ORDERED: Insulin Regular, Human 100 UNIT/ML 10 ML VIAL SC PRN (07:49)
[2024-04-24] MEDS ORDERED: Dextrose 50% Abboject 50 ML SYRINGE SLOW IVP PRN (07:49)
[2024-04-24] MEDS ORDERED: Dextrose 5% in Water 1,000 ML IV PRN (07:49)
[2024-04-24] MEDS ORDERED: Glucagon 1 MG/ML KIT IM PRN (07:49)
[2024-04-24] MEDS ORDERED: Ipratropium/Albuterol 3 ML NEB NEB PRN (09:52)
[2024-04-24] MEDS: Aspirin 81 mg Enteric Coated Tablet PO SCH (11:10)
[2024-04-24] MEDS: dilTIAZem 30 MG TAB PO SCH ×2 (11:11→21:31)
[2024-04-24] MEDS: Metoprolol Succinate XL 50 MG ER.TAB PO SCH ×2 (11:11→21:31)
[2024-04-24] MEDS: Pantoprazole 40 MG DR.TAB PO SCH (11:11)
[2024-04-24] MEDS: metFORMIN 500 MG TAB PO SCH (18:08)
[2024-04-24] MEDS: Terazosin HCl 5 MG CAP PO SCH (21:31)
[2024-04-24] MEDS: Atorvastatin Calcium 20 MG TAB PO SCH (21:31)
[2024-04-24] MEDS: Enoxaparin 40 MG (0.4 mL) SYRINGE SC SCH (21:31)
[2024-04-25] MEDS: Azithromycin 500 MG in Sodium Chloride 0.9% 250 ML 250 ML IVPB SCH (04:22)
[2024-04-25] MEDS: cefTRIAXone\\ROCEPHIN 1 GM in Sodium Chloride 0.9% 100 ML IVPB SCH (05:49)
[2024-04-25 06:13] LABS: #Basophils 0.03 10x3/uL (0.0-0.2); %Basophils 0.2 % (0.0-1.0); %Lymphocytes 8.6 % (21.0-51.0); %Monocytes 11.9 % (0.0-10.0); %Neutrophils 77.7 % (42.0-75.0); Hematocrit 28.3 % (42.0-52.0); Hemoglobin 9.6 g/dL (14.0-18.0); Mean Corpuscular HGB CONC 33.9 g/dL (32.0-36.0); Mean Corpuscular Volume 94.3 fL (78.0-98.0); Platelet Count 247 10x3/uL (130-400); RBC Distribution Width 12.8 % (11.5-14.5)
[2024-04-25 06:37] LABS: Chloride 104 mmol/L (98-107); Potassium 4.6 mmol/L (3.5-5.1); Sodium 137 mmol/L (136-145)
[2024-04-25 06:38] LABS: Calcium 8.8 mg/dL (7.8-10.44)
[2024-04-25 06:39] LABS: Glucose 152 mg/dL (83-110)
[2024-04-25 06:40] LABS: Anion Gap 13 mmol/L (10-20); Carbon Dioxide 25 mmol/L (23-31)
[2024-04-25 06:42] LABS: Calc. Creatinine Clearance 65 mL/min (70-130); Estimated GFR 63
[2024-04-25 06:43] LABS: BUN (Urea Nitrogen) 18 mg/dL (8.4-25.7)
[2024-04-25] MEDS: Acetaminophen 325 MG TAB PO PRN (09:07)
[2024-04-25] MEDS: FLU (Fluad Triv) TS24-25 (65UP)/MF59C/PF 45 MCG/0.5 ML Syringe IM ONE (09:08)
[2024-04-26] MEDS: Guaifenesin DM 100-10/5 ML UDCUP PO PRN (06:01)
[2024-04-26 06:39] LABS: #Basophils Less than 0.03 10x3/uL (0.0-0.2); %Basophils 0.2 % (0.0-1.0); %Eosinophils 1.3 % (0.0-10.0); %Lymphocytes 8.5 % (21.0-51.0); %Monocytes 8.9 % (0.0-10.0); %Neutrophils 80.4 % (42.0-75.0); Hematocrit 27.9 % (42.0-52.0); Hemoglobin 9.4 g/dL (14.0-18.0); Mean Corpuscular HGB CONC 33.7 g/dL (32.0-36.0); Mean Corpuscular Hemoglobin 31.6 pg (27.0-31.0); Mean Corpuscular Volume 93.9 fL (78.0-98.0); Mean Platelet Volume 9.3 fL (7.4-10.4); Platelet Count 292 10x3/uL (130-400); RBC Distribution Width 12.7 % (11.5-14.5); Red Blood Cell (RBC) Count 2.97 mill/uL (4.70-6.10)
[2024-04-26 07:02] LABS: Anion Gap 15 mmol/L (10-20); BUN (Urea Nitrogen) 14 mg/dL (8.4-25.7); Calc. Creatinine Clearance 73 mL/min (70-130); Calcium 8.5 mg/dL (7.8-10.44); Carbon Dioxide 22 mmol/L (23-31); Chloride 106 mmol/L (98-107); Estimated GFR 72; Glucose 145 mg/dL (83-110); Sodium 139 mmol/L (136-145)
[2024-04-26] MEDS ORDERED: VANCOMYCIN IVPB PRN (11:08)
[2024-04-26] MEDS: Cefepime 2 GM in Sodium Chloride 0.9% 100 ML IVPB SCH (11:54)
[2024-04-26] MEDS: Vancomycin (BATCH) 2.5 GM in Premix 1 BAG IVPB SCH (12:34)
[2024-04-26] MEDS ORDERED: FLUOROURACIL TOP PRN (17:15)
[2024-04-26] MEDS: Amlodipine 10 MG TAB PO SCH (17:35)
[2024-04-26] MEDS: Senokot S 8.6-50 MG TAB PO SCH (20:21)
[2024-04-26] MEDS: Ferrous Sulfate 325 MG TAB PO SCH (20:21)
[2024-04-26] MEDS: Azelastine 137 MCG/NASAL Spray 30 ML NS SCH (20:36)
[2024-04-27 05:40] LABS: #Basophils 0.03 10x3/uL (0.0-0.2); %Basophils 0.3 % (0.0-1.0); %Eosinophils 2.8 % (0.0-10.0); %Monocytes 10.4 % (0.0-10.0); %Neutrophils 71.1 % (42.0-75.0); Hematocrit 29.9 % (42.0-52.0); Hemoglobin 10.2 g/dL (14.0-18.0); Mean Corpuscular HGB CONC 34.1 g/dL (32.0-36.0); Mean Corpuscular Hemoglobin 31.8 pg (27.0-31.0); Mean Corpuscular Volume 93.1 fL (78.0-98.0); Mean Platelet Volume 9.2 fL (7.4-10.4); Platelet Count 319 10x3/uL (130-400); RBC Distribution Width 12.7 % (11.5-14.5); Red Blood Cell (RBC) Count 3.21 mill/uL (4.70-6.10)
[2024-04-27 06:07] LABS: Anion Gap 15 mmol/L (10-20); BUN (Urea Nitrogen) 14 mg/dL (8.4-25.7); Calc. Creatinine Clearance 75 mL/min (70-130); Calcium 9.1 mg/dL (7.8-10.44); Carbon Dioxide 22 mmol/L (23-31); Chloride 105 mmol/L (98-107); Estimated GFR 74; Glucose 134 mg/dL (83-110); Potassium 3.9 mmol/L (3.5-5.1); Sodium 138 mmol/L (136-145)
[2024-04-27 06:49] LABS: Vancomycin, Random 11.6 ug/mL (See Comment)
[2024-04-27] MEDS ORDERED: TRAMADOL HCL 300 MG PO SCH (09:00)
[2024-04-27] MEDS: Multivitamin W/ Minerals 1 TAB PO SCH (09:07)
[2024-04-27] MEDS: Amlodipine 10 MG TAB PO SCH (09:08)
[2024-04-27] MEDS: Calcium Carbonate 600 MG + Vit D TAB PO SCH (09:08)
[2024-04-27] MEDS: Azithromycin 250 MG TAB PO SCH (09:08)
[2024-04-27] MEDS: Donepezil HCl 10 MG TAB PO SCH (09:09)
[2024-04-27] MEDS: Insulin Regular, Human 100 UNIT/ML 10 ML VIAL SC PRN (11:32)
[2024-04-27] MEDS: Doxycycline 100 MG CAP PO SCH (11:32)
[2024-04-27] MEDS: Cefdinir 300 MG CAP PO SCH (11:32)
[2024-04-27] MEDS ORDERED: Vancomycin 1.5 GRAM/300 ML BAG 1.5 GM in Premix 1 BAG IVPB SCH (12:00)
[2024-04-28 05:23] LABS: #Basophils 0.04 10x3/uL (0.0-0.2); %Basophils 0.3 % (0.0-1.0); %Eosinophils 2.6 % (0.0-10.0); %Lymphocytes 13.5 % (21.0-51.0); %Monocytes 7.7 % (0.0-10.0); %Neutrophils 73.8 % (42.0-75.0); Hematocrit 29.6 % (42.0-52.0); Mean Corpuscular HGB CONC 33.8 g/dL (32.0-36.0); Mean Corpuscular Hemoglobin 31.7 pg (27.0-31.0); Platelet Count 359 10x3/uL (130-400); RBC Distribution Width 12.9 % (11.5-14.5); Red Blood Cell (RBC) Count 3.15 mill/uL (4.70-6.10)
[2024-04-28 06:59] LABS: Anion Gap 15 mmol/L (10-20); BUN (Urea Nitrogen) 19 mg/dL (8.4-25.7); Calc. Creatinine Clearance 70 mL/min (70-130); Calcium 9.2 mg/dL (7.8-10.44); Carbon Dioxide 20 mmol/L (23-31); Chloride 105 mmol/L (98-107); Estimated GFR 68; Glucose 144 mg/dL (83-110); Potassium 3.9 mmol/L (3.5-5.1); Sodium 136 mmol/L (136-145)
[2024-04-28 11:46] VITALS: BP 151/74; TEMP 98
== END 2024-04-28 15:32 | disposition home or self-care (01) | DRG 195 ==
LOC: ERS 02:18 → SURG B 05:45 → OBSVTOIN 14:32
PROVIDERS: ADMIT Internal Medicine; ATTEND Hospitalist
DX: J18.9 Pneumonia, unspecified organism (principal); I10 Essential (primary) hypertension; E78.5 Hyperlipidemia, unspecified; E11.9 Type 2 diabetes mellitus without complications; I48.91 Unspecified atrial fibrillation; M54.50 Low back pain, unspecified; G89.29 Other chronic pain; Z96.653 Presence of artificial knee joint, bilateral; Z88.8 Allergy status to other drugs, medicaments and biological substances; Z91.040 Latex allergy status; Z98.890 Other specified postprocedural states; Z87.891 Personal history of nicotine dependence
CPT/HCPCS: 36415; 36416; 71045; 80048; 80053; 80202; 81001; 83605; 83690; 83735; 83880; 84443; 84484; 85025; 87040; 87081; 87428; 93005; 96374; 96375; J0456; J0692; J0696; J1650; J1815; J3370; J7050